=== PATIENT | male | born 1965 ===

== ENCOUNTER 2017-08-03 05:01 | Inpatient (IN) | payer MEDICAID, MEDICARE, OTHER ==
[2017-08-03 05:06] VITALS: BMI 34.7
[2017-08-03] MEDS ORDERED: Sodium Chloride 0.9% 1,000 ML IV STA (05:23)
--- NOTE | 2017-08-03 05:41 | ED PDOC ---
HPI: Abdomen Time Seen by Provider: 08/03/17 05:07 Chief Complaint (Nursing): Abdominal Pain Chief Complaint (Provider): Abdominal Pain History Per: Patient History/Exam Limitations: no limitations Onset/Duration Of Symptoms: Hrs (x4) Current Symptoms Are (Timing): Still Present Context: Food (Ate [place] food last night) Location Of Pain/Discomfort: Epigastric Quality Of Discomfort: "Pain" Associated Symptoms: Vomiting. denies: Diarrhea Additional Complaint(s): 52 year old male presents to ED with complaints of abdominal pain x4 hours and has a past medical history of cholelithiasis, depression, and HTN. Patient states he ate [place] food last night and should not have due to having hisotry of cholelithiasis. Patient states he woke up from the pain. (+) diaphoresis and vomiting x2 episodes (non-bloody, non-bilious), (-) diarrhea. Confirms taking ibuprofen, but states that he vomited it up. PCP: ARASH Past Medical History Reviewed: Historical Data, Nursing Documentation, Vital Signs Vital Signs: Last Vital Signs Temp 99.5 F 08/04/17 00:32 Pulse 83 08/04/17 00:32 Resp 18 08/04/17 00:32 BP 127/75 08/04/17 00:32 Pulse Ox 96 08/04/17 00:32 - Medical History PMH: Depression, HTN Denies: No Chronic Diseases Other PMH: Cholelithiasis - Surgical History Surgical History: No Surg Hx - Family History Family History: States: Unknown Family Hx - Social History Current smoker - smoking cessation education provided: Yes (3-4 cigarettes a day ) Ex-Smoker (has not smoked in the last 12 months): No Alcohol: None Drugs: Denies - Immunization History Hx Tetanus Toxoid Vaccination: No Hx Influenza Vaccination: No Hx Pneumococcal Vaccination: No - Home Medications Home Medications: Ambulatory Orders Medication Instructions Recorded Valsartan [Diovan] 320 mg PO DAILY 02/01/17 Ziprasidone HCl 160 mg PO HS 02/01/17 Zolpidem [Ambien] 10 mg PO HS 02/01/17 Citalopram Hydrobromide [Celexa] 20 mg PO DAILY 08/03/17 Ziprasidone HCl [Geodon] 20 mg PO DAILY 08/03/17 amLODIPine [Norvasc] 10 mg PO DAILY 08/03/17 hydroCHLOROthiazide [Hydrodiuril] 25 mg PO DAILY 08/03/17 - Allergies Allergies/Adverse Reactions: Allergies Allergy/AdvReac Type Severity Reaction Status Date / Time No Known Allergies Allergy Verified 02/01/17 13:00 Review of Systems ROS Statement: Except As Marked, All Systems Reviewed And Found Negative Constitutional: Positive for: Sweats Gastrointestinal: Positive for: Vomiting, Abdominal Pain. Negative for: Diarrhea Physical Exam - Reviewed Nursing Documentation Reviewed: Yes Vital Signs Reviewed: Yes - Physical Exam Appears: Positive for: Non-toxic, Uncomfortable (mildly uncomfortable) Skin: Positive for: Normal Color, Warm, Diaphoresis Eye Exam: Positive for: Normal appearance ENT: Positive for: Normal ENT Inspection Neck: Positive for: Normal Cardiovascular/Chest: Positive for: Regular Rate, Rhythm. Negative for: Murmur Respiratory: Positive for: Normal Breath Sounds. Negative for: Respiratory Distress Gastrointestinal/Abdominal: Positive for: Soft, Tenderness (epigastric tenderness) Back: Positive for: Normal Inspection Extremity: Positive for: Normal ROM. Negative for: Deformity Neurologic/Psych: Positive for: Alert, Oriented. Negative for: Motor/Sensory Deficits - Laboratory Results Result Diagrams: 08/03/17 05:47 08/03/17 05:47 - ECG ECG Rhythm: Positive for: Sinus Rhythm Rate: 73 O2 Sat by Pulse Oximetry: 98 (RA) Pulse Ox Interpretation: Normal Medical Decision Making Medical Decision Makin Initial impression: gastroenteritis r/o cholecystitis Initial plan: * Labs * Lipase * Morphine 4mg IV * NS IV * Pepcid 20mg IVP * Zofran 4mg IV * Urine C&S * UA * US GALLBLADDER AND COMMON DUCT * Re-eval 0700 Patient has a white count of 20. Patient will be signed out to Marti Almonte MD pending US. Scribe Attestation: Documented by Harini Salomon acting as a scribe for Rhianna Keating MD. Scribe Attestation: All medical record entries made by the Scribe were at my direction and personally dictated by me. I have reviewed the chart and agree that the record accurately reflects my personal performance of the history, physical exam, medical decision making, and the department course for this patient. I have also personally directed, reviewed, and agree with the discharge instructions and disposition. Disposition - Clinical Impression Clinical Impression: Abdominal pain - Patient ED Disposition Is Patient to be Admitted: Transfer of Care - Disposition Disposition: Transfer of Care Disposition Time: 07:00 Condition: STABLE Patient Signed Over To: Marti Almonte Handoff Comments: Pending US
[2017-08-03 05:54] LABS: BASO # 0.1 K/uL (0.0-0.2); BASO % 0.5 % (0.0-2.0); EOS # 0.3 K/uL (0.0-0.7); EOS % 1.5 % (0.0-4.0); HEMATOCRIT 41.4 % (35.0-51.0); LYMPH # 3.3 K/uL (1.0-4.3); LYMPH % 15.1 % (20.0-40.0); MEAN CELL VOLUME 90.2 fl (80.0-94.0); MEAN CORPUSCULAR HEMOGLOBIN 29.6 pg (27.0-31.0); MEAN CORPUSCULAR HGB CONC 32.8 g/dL (33.0-37.0); MEAN PLATELET VOLUME 9.2 fl (7.2-11.7); MONO # 1.8 K/uL (0.0-0.8); MONO % 8.4 % (0.0-10.0); NEUT # 16.1 K/uL (1.8-7.0); NEUT % 74.5 % (50.0-75.0); RED CELL DISTRIBUTION WIDTH 13.5 % (11.5-14.5); WHITE BLOOD COUNT 21.6 K/uL (4.8-10.8)
[2017-08-03 06:04] LABS: ALB/GLOB RATIO 1.1 (1.0-2.1); ALKALINE PHOSPHATASE 71 U/L (38-126); ALT/SGPT 22 U/L (21-72); AST/SGOT 25 U/L (17-59); BILIRUBIN,TOTAL 0.3 mg/dl (0.2-1.3); BLOOD UREA NITROGEN 19 mg/dl (9-20); CALCIUM 9.2 mg/dL (8.4-10.2); CARBON DIOXIDE 24 mmol/L (22-30); CHLORIDE 107 mmol/L (98-107); GFR AFRICAN-AMERICAN > 60; GLUCOSE,RANDOM 169 mg/dL (75-110); LIPASE 142 U/L (23-300); POTASSIUM 3.5 MMOL/L (3.6-5.0); SODIUM 142 mmol/l (132-148); TOTAL PROTEIN 7.9 G/DL (6.3-8.2)
--- NOTE | 2017-08-03 07:10 | ED PDOC ---
- Laboratory Results Result Diagrams: 08/08/17 06:00 08/07/17 04:15 - ECG O2 Sat by Pulse Oximetry: 98 (RA) Pulse Ox Interpretation: Normal Medical Decision Making Medical Decision Makin:00 Patient signed over to me, Marti Almotne MD, pending US. [employer] [facility] Division of Radiology [address] [place] [address] Tel. no. Patient Name: ALBERTO LEOS Pt. Address: [address] [place] [address] Rec #: [id number] [place] [address]: Zuri LUCAS, Rhianna Euceda Pt Order Location: [facility] : 1965 Male Age: 52 Order #: [id number] Reason for exam: abdominal pain rule out cholecystitis Ultrasound GALLBLADDER COMMON DUCT Exam Date: 08/03/17 This imaging exam was performed at [facility] EXAM: US Abdomen Limited, Right Upper Quadrant CLINICAL HISTORY: 52 years old, male; Pain; Abdominal pain; Acute; Additional info: Abdominal pain rule out cholecystitis TECHNIQUE: Real-time ultrasound of the right upper quadrant with image documentation. COMPARISON: No relevant prior studies available. FINDINGS: Artifacts: Limited due to bowel gas shadowing. Limited due to shadowing from the ribs. Liver: The liver measures 19 cm. There is hepatic pedal flow in the portal vein. Gallbladder: There are gallstones with 5 mm gallbladder wall thickening.There was no right upper quadrant tenderness during the sonographic examination. Correlation with patient's pain medication status is recommended. Common bile duct: The common bile duct measures 7 mm which is dilated for patient's age. No stones. Pancreas: The pancreas is not well-seen. Echogenic pancreas. Right kidney: The visualized portions of right kidney demonstrate no hydronephrosis. IMPRESSION: 1. There are gallstones with 5 mm gallbladder wall thickening.There was no right upper quadrant tenderness during the sonographic examination. Correlation with patient's pain medication status is recommended. 2. The common bile duct measures 7 mm which is dilated for patient's age. Dictated By: ANGEL BLANTON Dictated Date/Time: 08/03/17 0800 Signed By: ANGEL BLANTON MD Date Signed: 799 Transcribed By: DEBBIE Transcribe Date/Time : 08/03/17799 SEA/CE 08:[address] Leiva, General mobile security specialist. Will start pt on antibiotics. Will be on consult. 08:21 vice president of development notified. Scribe Attestation: Documented by Kellen Colin, acting as a scribe for Marti Almonte MD. Provider Scribe Attestation: All medical record entries made by the Scribe were at my direction and personally dictated by me. I have reviewed the chart and agree that the record accurately reflects my personal performance of the history, physical exam, medical decision making, and the department course for this patient. I have also personally directed, reviewed, and agree with the discharge instructions and disposition. Disposition - Clinical Impression Clinical Impression: Acute cholecystitis - POA Present On Arrival: None - Disposition Disposition: Admitted as In-Patient Disposition Time: 08:29 Condition: STABLE
--- NOTE | 2017-08-03 08:00 | US ---
EXAM: US Abdomen Limited, Right Upper Quadrant CLINICAL HISTORY: 52 years old, male; Pain; Abdominal pain; Acute; Additional info: Abdominal pain rule out cholecystitis TECHNIQUE: Real-time ultrasound of the right upper quadrant with image documentation. COMPARISON: No relevant prior studies available. FINDINGS: Artifacts: Limited due to bowel gas shadowing. Limited due to shadowing from the ribs. Liver: The liver measures 19 cm. There is hepatic pedal flow in the portal vein. Gallbladder: There are gallstones with 5 mm gallbladder wall thickening.There was no right upper quadrant tenderness during the sonographic examination. Correlation with patient's pain medication status is recommended. Common bile duct: The common bile duct measures 7 mm which is dilated for patient's age. No stones. Pancreas: The pancreas is not well-seen. Echogenic pancreas. Right kidney: The visualized portions of right kidney demonstrate no hydronephrosis. IMPRESSION: 1. There are gallstones with 5 mm gallbladder wall thickening.There was no right upper quadrant tenderness during the sonographic examination. Correlation with patient's pain medication status is recommended. 2. The common bile duct measures 7 mm which is dilated for patient's age.
[2017-08-03] MEDS ORDERED: Piperacillin/Tazobact 3.375 GM in Sodium Chloride 0.9% 100 ML IVPB STA (08:20)
[2017-08-03] MEDS ORDERED: Piperacillin/Tazobact 3.375 gm Inj IVPB ONE (08:27)
[2017-08-03 08:50] LABS: VENOUS BLOOD GAS BASE EXCESS 0.8 mmol/L (0.0-2.0); VENOUS BLOOD GAS PCO2 46 mmHg (40-60); VENOUS BLOOD PH 7.37 (7.32-7.43)
--- NOTE | 2017-08-03 09:13 | CP.PCM.CON ---
<Fortunato Bar - Last Filed: 08/03/17 09:14> History of Present Illness - History of Present Illness History of Present Illness: General Surgery- Dr. Leiva 52M PMHx diabetes, HTN, cholelithiasis presented to [facility] ED w/ with sharp epigastric abdominal pain that started at 2am with minimal relief since arriving to the ED. Pt had multiple episodes of NBNB vomiting and nausea after having Afghan food right before bed. Denies Diarrhea, recent sick contacts, Fevers, chills, SOB. Pt is a chronic smoker increased non-productive cough. PMHx: Mental illness, HTN, Diabetes, choleltithiasis. PSH: none ALL: none SocialHx: chronic smoker at least 1ppd for many years. Review of Systems - Review of Systems All systems: reviewed and no additional remarkable complaints except - Constitutional Constitutional: As Per HPI Past Patient History - Infectious Disease Hx of Infectious Diseases: None - Past Social History Alcohol: None Drugs: Denies - CARDIAC Hx Hypertension: Yes - ENDOCRINE/METABOLIC Hx Diabetes Mellitus Type 2: Yes - PSYCHIATRIC Hx Depression: Yes - SURGICAL HISTORY Hx Surgeries: No - ANESTHESIA Hx Anesthesia: No Meds Allergies/Adverse Reactions: Allergies Allergy/AdvReac Type Severity Reaction Status Date / Time No Known Allergies Allergy Verified 02/01/17 13:00 - Medications Medications: Current Medications Sodium Chloride (Sodium Chloride 0.9%) 1,000 mls @ 150 mls/hr IV .Q6H40M STA Stop: 08/03/17 12:02 Last Admin: 08/03/17 05:44 Dose: 150 mls/hr Piperacillin Sod/Tazobactam (Sod 3.375 gm/ Sodium Chloride) 100 mls @ 100 mls/ hr IVPB STAT STA Stop: 08/03/17 09:19 Last Admin: 08/03/17 08:30 Dose: 100 mls/hr Physical Exam - Constitutional Appears: Non-toxic, No Acute Distress - Head Exam Head Exam: ATRAUMATIC - Eye Exam Eye Exam: EOMI. absent: Scleral icterus - ENT Exam ENT Exam: Mucous Membranes Moist - Respiratory Exam Respiratory Exam: Wheezes, NORMAL BREATHING PATTERN. absent: Accessory Muscle Use, Respiratory Distress - Cardiovascular Exam Cardiovascular Exam: +S1, +S2 - GI/Abdominal Exam GI & Abdominal Exam: Normal Bowel Sounds, Soft, Tenderness. absent: Firm, Guarding, Hernia Additional comments: tender to palpation in mid-epigastric, and deep palpation RUQ - Extremities Exam Extremities exam: Negative for: calf tenderness - Back Exam Back exam: absent: CVA tenderness (L), CVA tenderness (R) - Neurological Exam Neurological exam: Alert, Oriented x3 - Skin Skin Exam: Normal Color Results - Vital Signs Recent Vital Signs: Last Vital Signs Temp 97.9 F 08/03/17 08:02 Pulse 68 08/03/17 08:02 Resp 16 08/03/17 08:02 BP 169/103 H 08/03/17 08:02 Pulse Ox 98 08/03/17 08:24 - Labs Result Diagrams: 08/03/17 05:47 08/03/17 05:47 Labs: Laboratory Results - last 24 hr 08/03/17 08/03/17 08/03/17 05:47 05:47 08:45 WBC 21.6 H RBC 4.60 Hgb 13.6 Hct 41.4 MCV 90.2 MCH 29.6 MCHC 32.8 L RDW 13.5 Plt Count 317 MPV 9.2 Neut % (Auto) 74.5 Lymph % (Auto) 15.1 L [place] % (Auto) 8.4 Eos % (Auto) 1.5 Baso % (Auto) 0.5 Neut # 16.1 H Lymph # 3.3 Lehigh # 1.8 H Eos # 0.3 Baso # 0.1 pO2 48 VBG pH 7.37 VBG pCO2 46 VBG HCO3 25.1 VBG Total CO2 28.0 VBG O2 Sat (Calc) 89.4 H VBG Base Excess 0.8 VBG Potassium 3.9 Glucose 156 H Lactate 2.4 H FiO2 21.0 Crit Value Called To Eliza escobedo Crit Value Called By Ms Crit Value Read Back Y Blood Gas Notified Time 850 Sodium 142 139.0 Potassium 3.5 L Chloride 107 105.0 Carbon Dioxide 24 Anion Gap 15 BUN 19 Creatinine 1.4 Est GFR ( Amer) > 60 Est GFR (Non-Af Amer) 53 Random Glucose 169 H Calcium 9.2 Total Bilirubin 0.3 AST 25 ALT 22 Alkaline Phosphatase 71 Total Protein 7.9 Albumin 4.1 Globulin 3.8 Albumin/Globulin Ratio 1.1 Lipase 142 Venous Blood Potassium 3.9 Assessment & Plan - Assessment and Plan (Free Text) Assessment: 52M Mid-Epigastric pain w/ cholelithiasis Plan: - NPO - IVF/Abx - await results of UA and final read of CXR - pain control - GI/DVT ppx - HIDA- rule out cholecystitits - further recs per Dr. Cali Bar PGY1 <Richard Leiva - Last Filed: 08/05/17 11:51> Meds - Medications Medications: Current Medications Acetaminophen (Tylenol 325mg Tab) 650 mg PO Q6 PRN PRN Reason: Fever >100.4 F Amlodipine Besylate (Norvasc) 10 mg PO DAILY [facility] Last Admin: 08/04/17 10:07 Dose: 10 mg Citalopram Hydrobromide (Celexa) 20 mg PO DAILY [facility] Last Admin: 08/05/17 08:44 Dose: 20 mg Famotidine (Pepcid) 20 mg IVP Q12 [facility] Last Admin: 08/05/17 08:53 Dose: 20 mg Hydrochlorothiazide (Hydrodiuril) 25 mg PO DAILY [facility] Last Admin: 08/04/17 10:07 Dose: 25 mg Piperacillin Sod/Tazobactam (Sod 3.375 gm/ Sodium Chloride) 100 mls @ 100 mls/ hr IVPB Q12 [facility] Last Admin: 08/05/17 08:44 Dose: 100 mls/hr Lactated Ringer's (Lactated Ringer's) 1,000 mls @ 1,000 mls/hr IV .Q1H PRN PRN Reason: Hypotension Potassium Chloride/Dextrose/Sod Cl (Potassium Chl 20 Meq In D5-1/2ns) 1,000 mls @ 80 mls/hr IV .[id number] [facility] Stop: 08/06/17 07:53 Last Admin: 08/05/17 08:30 Dose: 80 mls/hr Metoclopramide HCl (Reglan) 10 mg IVP Q6 PRN PRN Reason: Nausea/Vomiting Oxycodone/Acetaminophen (Percocet 5/325 Mg Tab) 1 tab PO Q6 PRN PRN Reason: Pain, moderate (4-7) Stop: 08/07/17 20:04 Last Admin: 08/05/17 10:03 Dose: 1 tab Oxycodone/Acetaminophen (Percocet 5/325 Mg Tab) 2 tab PO Q6 PRN PRN Reason: Pain, severe (8-10) Stop: 08/08/17 07:37 Valsartan (Diovan) 320 mg PO DAILY [facility] Last Admin: 08/04/17 10:17 Dose: 320 mg Ziprasidone (Geodon Cap) 20 mg PO DAILY [facility] Last Admin: 08/05/17 08:44 Dose: 20 mg Ziprasidone (Geodon) 160 mg PO HS [facility] Last Admin: 08/04/17 23:51 Dose: 160 mg Results - Vital Signs Recent Vital Signs: Last Vital Signs Temp 98.8 F 08/05/17 08:00 Pulse 74 08/05/17 09:00 Resp 20 08/05/17 08:00 BP 123/78 08/05/17 08:00 Pulse Ox 90 L 08/05/17 08:00 - Labs Result Diagrams: 08/05/17 05:50 08/05/17 05:50 Labs: Laboratory Results - last 24 hr 08/04/17 08/04/17 08/04/17 11:01 15:54 19:57 WBC RBC Hgb Hct MCV MCH MCHC RDW Plt Count MPV Neut % (Auto) Lymph % (Auto) [place] % (Auto) Eos % (Auto) Baso % (Auto) Neut # Lymph # [place] # Eos # Baso # Sodium Potassium Chloride Carbon Dioxide Anion Gap BUN Creatinine Est GFR ( Amer) Est GFR (Non-Af Amer) POC Glucose (mg/dL) 128 H 97 138 H Random Glucose Calcium Total Bilirubin AST ALT Alkaline Phosphatase Total Protein Albumin Globulin Albumin/Globulin Ratio 08/05/17 08/05/17 05:50 05:50 WBC 20.0 H RBC 4.02 L Hgb 12.1 Hct 36.6 MCV 91.0 MCH 30.1 MCHC 33.1 RDW 13.2 Plt Count 230 MPV 8.9 Neut % (Auto) 73.3 Lymph % (Auto) 14.5 L [place] % (Auto) 11.0 H Eos % (Auto) 0.5 Baso % (Auto) 0.7 Neut # 14.7 H Lymph # 2.9 [place] # 2.2 H Eos # 0.1 Baso # 0.1 Sodium 139 Potassium 3.7 Chloride 102 Carbon Dioxide 25 Anion Gap 16 BUN 14 Creatinine 1.1 Est GFR ( Amer) > 60 Est GFR (Non-Af Amer) > 60 POC Glucose (mg/dL) Random Glucose 86 Calcium 8.3 L Total Bilirubin 0.8 AST 54 ALT 55 Alkaline Phosphatase 60 Total Protein 6.7 Albumin 3.3 L Globulin 3.4 Albumin/Globulin Ratio 1.0 Attending/Attestation - Attestation I have personally seen and examined this patient.: Yes I have fully participated in the care of the patient.: Yes I have reviewed all pertinent clinical information: Yes Notes (Text): 08/05/17 11:48 Pt was seen and examined at bedside Agree with above note and assessment Pt with epigastric pain and tenderness RUQ tenderness Ass: Possible cholecystitis with cholelithiasis Less likely Gastroenteritis f/U HIDA scan C/w IV antibitics GI consult Plan d.w pt in detail Risk and benefit explained in detail.
[2017-08-03] MEDS ORDERED: Lactated Ringer's 1,000 ML IV SCH (09:30)
--- NOTE | 2017-08-03 10:08 | RAD ---
HISTORY: COMPARISON: 01/09/2013. TECHNIQUE: Chest PA and lateral FINDINGS: LINES AND TUBES: None. LUNG AND PLEURA: The lungs are hyperinflated and there is peribronchial thickening with chronic changes in both lungs. No focal consolidation. HEART AND MEDIASTINUM: The heart is not enlarged. The hilar and mediastinal contours are within normal limits. SKELETAL STRUCTURES: The bony structures are within normal limits for the patient's age. VISUALIZED UPPER ABDOMEN: Normal. OTHER FINDINGS: None. IMPRESSION: No active pulmonary disease. COPD.
[2017-08-03 12:09] LABS: RBC URINE 10 /hpf (0-3); URINE BILIRUBIN NEGATIVE (NEGATIVE); URINE BLOOD NEGATIVE (NEGATIVE); URINE COLOR YELLOW (YELLOW); URINE GLUCOSE (UA) NEG (Normal); URINE KETONE NEGATIVE (NEGATIVE); URINE LEUKOCYTE ESTERASE NEG Leu/uL (Negative); URINE PROTEIN 100 mg/dL (NEGATIVE); URINE UROBILINOGEN 0.2-1.0 mg/dL (0.2-1.0); WBC URINE 4 /hpf (0-5)
[2017-08-03] MEDS: Lactated Ringer's 1,000 ML IV SCH (16:18)
--- NOTE | 2017-08-03 17:24 | CARD ---
APPROVED REPORT EKG Measurement Heart [id number] <Conclusion> Sinus rhythm with marked sinus arrhythmia Otherwise normal ECG
[2017-08-03] MEDS: Piperacillin/Tazobact 3.375 GM in Sodium Chloride 0.9% 100 ML IVPB SCH (21:31)
[2017-08-04] MEDS: Lactated Ringer's 1,000 ML IV SCH (05:37)
[2017-08-04 06:58] LABS: HEMATOCRIT 39.3 % (35.0-51.0); MEAN CELL VOLUME 89.5 fl (80.0-94.0); MEAN CORPUSCULAR HEMOGLOBIN 30.1 pg (27.0-31.0); MEAN CORPUSCULAR HGB CONC 33.6 g/dL (33.0-37.0); RED CELL DISTRIBUTION WIDTH 13.4 % (11.5-14.5); WHITE BLOOD COUNT 22.2 K/uL (4.8-10.8)
[2017-08-04 07:08] LABS: BLOOD UREA NITROGEN 12 mg/dl (9-20); CARBON DIOXIDE 24 mmol/L (22-30); CHLORIDE 101 mmol/L (98-107); GFR AFRICAN-AMERICAN > 60; GLUCOSE,RANDOM 121 mg/dL (75-110); POTASSIUM 3.2 MMOL/L (3.6-5.0); SODIUM 140 mmol/l (132-148)
--- NOTE | 2017-08-04 08:02 | CP.PCM.PN ---
Addendum entered and electronically signed by Laura Friedman DO 08/04/17 11: 25: HIDA scan +. Patient for OR this afternoon. maintain NPO status. AKWhite PGY3 Original Note: <Fortunato Bar - Last Filed: 08/04/17 08:00> Subjective - Date & Time of Evaluation Date of Evaluation: 08/04/17 Time of Evaluation: 07:00 - Subjective Subjective: General Surgery- Dr. Leiva Pt S&E at bedside this AM. No acute events overnight. Pt is on CLD and tolerating will. continued epigastric and RUQ pain. Denies N/V/D CP/SOB Objective - Vital Signs/Intake and Output Vital Signs (last 24 hours): Temp Pulse Resp BP Pulse Ox 98.4 F 86 18 145/94 H 95 08/04/17 07:36 08/04/17 07:36 08/04/17 07:36 08/04/17 07:36 08/04/17 07:36 - Medications Medications: Current Medications Amlodipine Besylate (Norvasc) 10 mg PO DAILY [facility] Last Admin: 08/03/17 14:38 Dose: 10 mg Citalopram Hydrobromide (Celexa) 20 mg PO DAILY [facility] Last Admin: 08/03/17 15:17 Dose: 20 mg Famotidine (Pepcid) 20 mg IVP Q12 [facility] Last Admin: 08/03/17 21:31 Dose: 20 mg Hydrochlorothiazide (Hydrodiuril) 25 mg PO DAILY [facility] Last Admin: 08/03/17 14:38 Dose: 25 mg Piperacillin Sod/Tazobactam (Sod 3.375 gm/ Sodium Chloride) 100 mls @ 100 mls/ hr IVPB Q12 [facility] Last Admin: 08/03/17 21:31 Dose: 100 mls/hr Lactated Ringer's (Lactated Ringer's) 1,000 mls @ 75 mls/hr IV .[id number] [facility] Last Admin: 08/04/17 05:37 Dose: 75 mls/hr Valsartan (Diovan) 320 mg PO DAILY [facility] Last Admin: 08/03/17 15:17 Dose: 320 mg Ziprasidone (Geodon Cap) 20 mg PO DAILY [facility] Last Admin: 08/03/17 15:16 Dose: 20 mg Ziprasidone (Geodon) 160 mg PO HS [facility] Last Admin: 08/03/17 21:39 Dose: 160 mg - Labs Labs: 08/04/17 06:35 08/04/17 06:35 - Constitutional Appears: Non-toxic, No Acute Distress - Head Exam Head Exam: ATRAUMATIC - Eye Exam Eye Exam: EOMI. absent: Scleral icterus - Respiratory Exam Respiratory Exam: NORMAL BREATHING PATTERN. absent: Accessory Muscle Use, Respiratory Distress - Cardiovascular Exam Cardiovascular Exam: +S1, +S2 - GI/Abdominal Exam GI & Abdominal Exam: Soft, Tenderness. absent: Distended, Firm, Guarding, Rigid Additional comments: TTP mid-epigastrum and RUQ -tate - Extremities Exam Extremities Exam: Normal Inspection. absent: Calf Tenderness - Neurological Exam Neurological Exam: Alert, Awake, Oriented x3 - Psychiatric Exam Psychiatric exam: Normal Affect, Normal Mood - Skin Skin Exam: Dry, Normal Color, Warm Assessment and Plan - Assessment and Plan (Free Text) Assessment: 52M Cholelithiasis vs Acute cholecystitis Plan: - NPO - IVF/Abx - GI/DVT ppx - f/u GI recs - HIDA today; if HIDA positive plan for OR Thursday - further recs per Dr. Cali Bar PGY1 <Richard Leiva - Last Filed: 08/05/17 12:02> Objective - Vital Signs/Intake and Output Vital Signs (last 24 hours): Temp Pulse Resp BP Pulse Ox 98.8 F 74 20 123/78 90 L 08/05/17 08:00 08/05/17 09:00 08/05/17 08:00 08/05/17 08:00 08/05/17 08:00 Intake and Output: 08/05/17 08/05/17 06:59 18:59 Intake Total 3700 Output Total 485 Balance 3215 - Medications Medications: Current Medications Acetaminophen (Tylenol 325mg Tab) 650 mg PO Q6 PRN PRN Reason: Fever >100.4 F Amlodipine Besylate (Norvasc) 10 mg PO DAILY [facility] Last Admin: 08/04/17 10:07 Dose: 10 mg Citalopram Hydrobromide (Celexa) 20 mg PO DAILY [facility] Last Admin: 08/05/17 08:44 Dose: 20 mg Famotidine (Pepcid) 20 mg IVP Q12 [facility] Last Admin: 08/05/17 08:53 Dose: 20 mg Hydrochlorothiazide (Hydrodiuril) 25 mg PO DAILY [facility] Last Admin: 08/04/17 10:07 Dose: 25 mg Piperacillin Sod/Tazobactam (Sod 3.375 gm/ Sodium Chloride) 100 mls @ 100 mls/ hr IVPB Q12 [facility] Last Admin: 08/05/17 08:44 Dose: 100 mls/hr Lactated Ringer's (Lactated Ringer's) 1,000 mls @ 1,000 mls/hr IV .Q1H PRN PRN Reason: Hypotension Potassium Chloride/Dextrose/Sod Cl (Potassium Chl 20 Meq In D5-1/2ns) 1,000 mls @ 80 mls/hr IV .[id number] [facility] Stop: 08/06/17 07:53 Last Admin: 08/05/17 08:30 Dose: 80 mls/hr Metoclopramide HCl (Reglan) 10 mg IVP Q6 PRN PRN Reason: Nausea/Vomiting Oxycodone/Acetaminophen (Percocet 5/325 Mg Tab) 1 tab PO Q6 PRN PRN Reason: Pain, moderate (4-7) Stop: 08/07/17 20:04 Last Admin: 08/05/17 10:03 Dose: 1 tab Oxycodone/Acetaminophen (Percocet 5/325 Mg Tab) 2 tab PO Q6 PRN PRN Reason: Pain, severe (8-10) Stop: 08/08/17 07:37 Valsartan (Diovan) 320 mg PO DAILY [facility] Last Admin: 08/04/17 10:17 Dose: 320 mg Ziprasidone (Geodon Cap) 20 mg PO DAILY [facility] Last Admin: 08/05/17 08:44 Dose: 20 mg Ziprasidone (Geodon) 160 mg PO HS [facility] Last Admin: 08/04/17 23:51 Dose: 160 mg - Labs Labs: 08/05/17 05:50 08/05/17 05:50 PT 13.6 Seconds (9.8-13.1) H 08/04/17 11:00 INR 1.3 (0.9-1.2) H 08/04/17 11:00 APTT 32.9 Seconds (25.6-37.1) 08/04/17 11:00 Attending/Attestation - Attestation I have personally seen and examined this patient.: Yes I have fully participated in the care of the patient.: Yes I have reviewed all pertinent clinical information, including history, physical exam and plan: Yes Notes (Text): 08/05/17 12:01 Pt was seen and examined at bedside Agree with above note and assessment Pt with RUQ pain HIDA is positive OR for Lap Cholecystectomy possible Open Consent NPO, IVF C/W IV antibiotics Plan d.w pt in detail Risk and benefit explained in detail.
[2017-08-04 08:08] LABS: ALKALINE PHOSPHATASE 70 U/L (38-126); ALT/SGPT 36 U/L (21-72); AST/SGOT 31 U/L (17-59); BILIRUBIN,TOTAL 0.9 mg/dl (0.2-1.3); TOTAL PROTEIN 7.7 G/DL (6.3-8.2)
[2017-08-04] MEDS ORDERED: Potassium Chloride 20 mEq ER Tab PO ONE (09:07)
[2017-08-04] MEDS: Potassium Chloride 20 MEQ in Sodium Chloride 0.45% 1,000 ML IV SCH ×2 (09:15→11:00)
[2017-08-04] MEDS: Piperacillin/Tazobact 3.375 GM in Sodium Chloride 0.9% 100 ML IVPB SCH ×2 (10:08→23:03)
--- NOTE | 2017-08-04 10:55 | CP.PCM.PN ---
<Kamron Man - Last Filed: 08/04/17 11:03> Subjective - Date & Time of Evaluation Date of Evaluation: 08/04/17 Time of Evaluation: 10:53 - Subjective Subjective: pt seen and examined at bedside this morning. No acute events overnight. Afebrile, currently NPO recieving IV hydration and Abx therapy. No new complaints. RUQ pain controlled with medications. Denies fever/chills, headaches , changes in vision, CP/SOB, N/V/D/C. Objective - Vital Signs/Intake and Output Vital Signs (last 24 hours): Temp Pulse Resp BP Pulse Ox 98.4 F 86 18 145/94 H 95 08/04/17 07:36 08/04/17 07:36 08/04/17 07:36 08/04/17 10:07 08/04/17 07:36 - Medications Medications: Current Medications Amlodipine Besylate (Norvasc) 10 mg PO DAILY [facility] Last Admin: 08/04/17 10:07 Dose: 10 mg Citalopram Hydrobromide (Celexa) 20 mg PO DAILY [facility] Last Admin: 08/04/17 10:07 Dose: 20 mg Famotidine (Pepcid) 20 mg IVP Q12 [facility] Last Admin: 08/04/17 10:17 Dose: 20 mg Hydrochlorothiazide (Hydrodiuril) 25 mg PO DAILY [facility] Last Admin: 08/04/17 10:07 Dose: 25 mg Piperacillin Sod/Tazobactam (Sod 3.375 gm/ Sodium Chloride) 100 mls @ 100 mls/ hr IVPB Q12 [facility] Last Admin: 08/04/17 10:08 Dose: 100 mls/hr Potassium Chloride 20 meq/ (Sodium Chloride) 1,010 mls @ 80 mls/hr IV .[id number] [facility] Stop: 08/05/17 09:08 Valsartan (Diovan) 320 mg PO DAILY [facility] Last Admin: 08/04/17 10:17 Dose: 320 mg Ziprasidone (Geodon Cap) 20 mg PO DAILY [facility] Last Admin: 08/04/17 10:07 Dose: 20 mg Ziprasidone (Geodon) 160 mg PO HS [facility] Last Admin: 08/03/17 21:39 Dose: 160 mg - Labs Labs: 08/04/17 06:35 08/04/17 06:35 - Constitutional Appears: Non-toxic, No Acute Distress - Eye Exam Eye Exam: EOMI Pupil Exam: PERRL - ENT Exam ENT Exam: Mucous Membranes Moist - Neck Exam Neck Exam: Full ROM - Respiratory Exam Respiratory Exam: Clear to Ausculation Bilateral, NORMAL BREATHING PATTERN. absent: Rales, Rhonchi, Wheezes - Cardiovascular Exam Cardiovascular Exam: REGULAR RHYTHM, RRR, +S1, +S2. absent: JVD, Rubs - GI/Abdominal Exam GI & Abdominal Exam: Soft, Tenderness (RUQ Tenderness, +tate), Hyperactive Bowel Sounds. absent: Rigid - Extremities Exam Extremities Exam: Normal Inspection. absent: Calf Tenderness, Pedal Edema - Neurological Exam Neurological Exam: Alert, Awake, CN II-XII Intact, Oriented x3 - Psychiatric Exam Psychiatric exam: Normal Affect, Normal Mood - Skin Skin Exam: Dry, Intact, Normal Color, Warm Assessment and Plan (1) Acute cholecystitis Assessment & Plan: currently being followed by gen/surg for potential surgical intervention pending HIDA scan results GB U/S: CBD dilation, wall thickening, gallstones -NPO DIET -IV Fluid hydration -IV ABx therapy as ordered -F/U GI -HIDA Scan today Status: Acute (2) Essential (primary) hypertension Assessment & Plan: c/w home medications Status: Acute (3) Prophylactic measure Assessment & Plan: pepcid 20mg QD scds prn, ambulation Status: Acute <Nicholson,[place] - Last Filed: 08/07/17 16:23> Objective - Vital Signs/Intake and Output Vital Signs (last 24 hours): Temp Pulse Resp BP Pulse Ox 98.0 F 79 19 133/76 97 08/07/17 16:13 08/07/17 16:13 08/07/17 16:13 08/07/17 16:13 08/07/17 16:13 Intake and Output: 08/07/17 08/07/17 06:59 18:59 Intake Total 500 Output Total 820 Balance -320 - Medications Medications: Current Medications Acetaminophen (Tylenol 325mg Tab) 650 mg PO Q6 PRN PRN Reason: Fever >100.4 F Amlodipine Besylate (Norvasc) 10 mg PO DAILY [facility] Last Admin: 08/07/17 09:11 Dose: 10 mg Citalopram Hydrobromide (Celexa) 20 mg PO DAILY [facility] Last Admin: 08/07/17 09:11 Dose: 20 mg Docusate Sodium (Colace) 100 mg PO DAILY PRN PRN Reason: constipation Famotidine (Pepcid) 20 mg PO BID [facility] Last Admin: 08/07/17 09:13 Dose: 20 mg Hydrochlorothiazide (Hydrodiuril) 25 mg PO DAILY [facility] Last Admin: 08/07/17 09:11 Dose: 25 mg Meropenem 1 gm/ Sodium (Chloride) 100 mls @ 100 mls/hr IVPB Q8 [facility] Lactulose (Enulose) 10 gm PO DAILY PRN PRN Reason: Constipation Metoclopramide HCl (Reglan) 10 mg IVP Q6 PRN PRN Reason: Nausea/Vomiting Oxycodone/Acetaminophen (Percocet 5/325 Mg Tab) 1 tab PO Q6 PRN PRN Reason: Pain, moderate (4-7) Stop: 08/07/17 20:04 Last Admin: 08/07/17 04:31 Dose: 1 tab Oxycodone/Acetaminophen (Percocet 5/325 Mg Tab) 2 tab PO Q6 PRN PRN Reason: Pain, severe (8-10) Stop: 08/08/17 07:37 Last Admin: 08/06/17 08:19 Dose: 2 tab Valsartan (Diovan) 320 mg PO DAILY [facility] Last Admin: 08/07/17 09:11 Dose: 320 mg Ziprasidone (Geodon Cap) 20 mg PO DAILY [facility] Last Admin: 08/07/17 09:11 Dose: 20 mg Ziprasidone (Geodon) 160 mg PO [facility] Last Admin: 08/06/17 21:21 Dose: 160 mg - Labs Labs: 08/07/17 04:15 08/07/17 04:15 PT 13.6 Seconds (9.8-13.1) H 08/04/17 11:00 INR 1.3 (0.9-1.2) H 08/04/17 11:00 APTT 32.9 Seconds (25.6-37.1) 08/04/17 11:00 Assessment and Plan - Assessment and Plan (Free Text) Assessment: Patient was personally seen and examined by me in rounds with residents. Available labs and diagnostic data reviewed. Case, Patient's condition and management plan Discussed with residents in rounds. Agree with resident's progress note. Plan: As ordered.
[2017-08-04 11:44] LABS: PARTIAL THROMBOPLASTIN TIME 32.9 Seconds (25.6-37.1)
--- NOTE | 2017-08-04 13:20 | CP.PCM.CON ---
<Mega Irby - Last Filed: 08/04/17 13:32> History of Present Illness - History of Present Illness History of Present Illness: PGY4 Initial GI Consult Marco Green is a 52M w/ htn, DM, HL who presented to the ER with complaints of epigastric and RUQ pain. Pt states that the pain awoke him at 2am. He states that the pain was sharp and radiating to the RUQ. It was 10 out of 10 and constant. He concurrently had non-bloody emesis x2 at home. He eventually came to the ER for further eval. Pt states that he has had similar RUQ pain in the past. He states that he was recently seen in the ER complaining of RUQ pain. At the time, he was diagnosed with biliary colic and discharged. Pt states that since then he has not had any further episode until yesterday. Pt denies any fever, chills or diaphoresis. Prior to bed, he ate at a [employer] restaurant. No other family members have similiar symptoms. Denies any recent abx use. He states that he has reg BM daily and brown. No other complaint. He has been by surgery and planned for lap clarita today at 4pm. PMHx: Mental illness, HTN, Diabetes, choleltithiasis. PSH: none ALL: none SocialHx: chronic smoker at least 1ppd for many years. Family hx: denies colon ca Endoscopy hx: denies ROS: 12-point ROS conducted, neg other than above Past Patient History - Infectious Disease Hx of Infectious Diseases: None - Past Medical History & Family History Past Medical History?: Yes - Past Social History Alcohol: None Drugs: Denies - CARDIAC Hx Hypertension: Yes - ENDOCRINE/METABOLIC Hx Endocrine Disorders: Yes - MUSCULOSKELETAL/RHEUMATOLOGICAL Hx Falls: No - PSYCHIATRIC Hx Depression: Yes - SURGICAL HISTORY Hx Surgeries: No - ANESTHESIA Hx Anesthesia: No Meds Allergies/Adverse Reactions: Allergies Allergy/AdvReac Type Severity Reaction Status Date / Time No Known Allergies Allergy Verified 02/01/17 13:00 - Medications Medications: Current Medications Amlodipine Besylate (Norvasc) 10 mg PO DAILY [facility] Last Admin: 08/04/17 10:07 Dose: 10 mg Citalopram Hydrobromide (Celexa) 20 mg PO DAILY [facility] Last Admin: 08/04/17 10:07 Dose: 20 mg Famotidine (Pepcid) 20 mg IVP Q12 [facility] Last Admin: 08/04/17 10:17 Dose: 20 mg Hydrochlorothiazide (Hydrodiuril) 25 mg PO DAILY [facility] Last Admin: 08/04/17 10:07 Dose: 25 mg Piperacillin Sod/Tazobactam (Sod 3.375 gm/ Sodium Chloride) 100 mls @ 100 mls/ hr IVPB Q12 [facility] Last Admin: 08/04/17 10:08 Dose: 100 mls/hr Potassium Chloride 20 meq/ (Sodium Chloride) 1,010 mls @ 80 mls/hr IV .[id number] [facility] Stop: 08/05/17 09:08 Last Admin: 08/04/17 09:15 Dose: Not Given Valsartan (Diovan) 320 mg PO DAILY [facility] Last Admin: 08/04/17 10:17 Dose: 320 mg Ziprasidone (Geodon Cap) 20 mg PO DAILY [facility] Last Admin: 08/04/17 10:07 Dose: 20 mg Ziprasidone (Geodon) 160 mg PO HS [facility] Last Admin: 08/03/17 21:39 Dose: 160 mg Physical Exam - Constitutional Appears: Well, No Acute Distress - Head Exam Head Exam: ATRAUMATIC, NORMOCEPHALIC - Eye Exam Eye Exam: Normal appearance - ENT Exam ENT Exam: Mucous Membranes Moist - Neck Exam Neck exam: Positive for: Normal Inspection - Respiratory Exam Respiratory Exam: Clear to Auscultation Bilateral, NORMAL BREATHING PATTERN. absent: Rales, Rhonchi, Wheezes - Cardiovascular Exam Cardiovascular Exam: REGULAR RHYTHM, +S1, +S2 - GI/Abdominal Exam GI & Abdominal Exam: Normal Bowel Sounds, Soft, Tenderness (RUQ) - Extremities Exam Extremities exam: Positive for: normal inspection - Neurological Exam Neurological exam: Alert, Oriented x3 - Skin Skin Exam: Dry, Intact, Normal Color Results - Vital Signs Recent Vital Signs: Last Vital Signs Temp 98.4 F 08/04/17 07:36 Pulse 86 08/04/17 07:36 Resp 18 08/04/17 07:36 BP 145/94 H 08/04/17 10:07 Pulse Ox 95 08/04/17 07:36 - Labs Result Diagrams: 08/04/17 06:35 08/04/17 06:35 Labs: Laboratory Results - last 24 hr 08/03/17 08/03/17 08/03/17 11:01 15:38 21:44 WBC RBC Hgb Hct MCV MCH MCHC RDW Plt Count PT INR APTT Sodium Potassium Chloride Carbon Dioxide Anion Gap BUN Creatinine Est GFR ( Amer) Est GFR (Non-Af Amer) POC Glucose (mg/dL) 149 H 159 H 92 Random Glucose Calcium Total Bilirubin Direct Bilirubin AST ALT Alkaline Phosphatase Total Protein Albumin Globulin Albumin/Globulin Ratio 08/04/17 08/04/17 08/04/17 05:56 06:35 06:35 WBC 22.2 H RBC 4.40 Hgb 13.2 Hct 39.3 MCV 89.5 MCH 30.1 MCHC 33.6 RDW 13.4 Plt Count 272 PT INR APTT Sodium 140 Potassium 3.2 L Chloride 101 Carbon Dioxide 24 Anion Gap 18 BUN 12 Creatinine 0.8 Est GFR ( Amer) > 60 Est GFR (Non-Af Amer) > 60 POC Glucose (mg/dL) 115 H Random Glucose 121 H Calcium 9.0 Total Bilirubin 0.9 Direct Bilirubin 0.5 H AST 31 ALT 36 Alkaline Phosphatase 70 Total Protein 7.7 Albumin 3.8 Globulin 3.9 Albumin/Globulin Ratio 1.0 08/04/17 11:00 WBC RBC Hgb Hct MCV MCH MCHC RDW Plt Count PT 13.6 H INR 1.3 H APTT 32.9 Sodium Potassium Chloride Carbon Dioxide Anion Gap BUN Creatinine Est GFR ( Amer) Est GFR (Non-Af Amer) POC Glucose (mg/dL) Random Glucose Calcium Total Bilirubin Direct Bilirubin AST ALT Alkaline Phosphatase Total Protein Albumin Globulin Albumin/Globulin Ratio Assessment & Plan - Assessment and Plan (Free Text) Assessment: Marco Green is a 52M w/ hx of HTN, Dm, and HL who presents with RUQ, etiology is likely cholecystitis based on physcial and U/S findings 1. Cholecystitis 2. RUQ abd pain 3. Leukocytosis Plan: -NPO -as per surgery, Lap clarita at 4pm today -continue abx as per surgury -No acute GI intervention at this time, LFTs WNL and CBD -recommend routine outpt screening colonoscopy -diet as per surgery -Will sign off, please reconsult if needed D/W Dr. Quarles <Robina LUCASY[facility] Centerhayde - Last Filed: 08/04/17 18:47> Meds - Medications Medications: Current Medications Amlodipine Besylate (Norvasc) 10 mg PO DAILY [facility] Last Admin: 08/04/17 10:07 Dose: 10 mg Citalopram Hydrobromide (Celexa) 20 mg PO DAILY [facility] Last Admin: 08/04/17 10:07 Dose: 20 mg Famotidine (Pepcid) 20 mg IVP Q12 [facility] Last Admin: 08/04/17 10:17 Dose: 20 mg Hydrochlorothiazide (Hydrodiuril) 25 mg PO DAILY [facility] Last Admin: 08/04/17 10:07 Dose: 25 mg Piperacillin Sod/Tazobactam (Sod 3.375 gm/ Sodium Chloride) 100 mls @ 100 mls/ hr IVPB Q12 [facility] Last Admin: 08/04/17 10:08 Dose: 100 mls/hr Potassium Chloride 20 meq/ (Sodium Chloride) 1,010 mls @ 80 mls/hr IV .[id number] [facility] Stop: 08/05/17 09:08 Last Admin: 08/04/17 11:00 Dose: 80 mls/hr Potassium Chloride (Potassium Cl 10meq/50ml Sterile Water) 50 mls @ 50 mls/hr IVPB Q1 [facility] Stop: 08/04/17 19:59 Valsartan (Diovan) 320 mg PO DAILY [facility] Last Admin: 08/04/17 10:17 Dose: 320 mg Ziprasidone (Geodon Cap) 20 mg PO DAILY [facility] Last Admin: 08/04/17 10:07 Dose: 20 mg Ziprasidone (Geodon) 160 mg PO [facility] Last Admin: 08/03/17 21:39 Dose: 160 mg Results - Vital Signs Recent Vital Signs: Last Vital Signs Temp 100.7 F H 08/04/17 16:33 Pulse 103 H 08/04/17 16:33 Resp 20 08/04/17 16:33 BP 127/81 08/04/17 16:33 Pulse Ox 97 08/04/17 16:33 - Labs Result Diagrams: 08/04/17 06:35 08/04/17 06:35 Labs: Laboratory Results - last 24 hr 08/03/17 08/04/17 08/04/17 21:44 05:56 06:35 WBC 22.2 H RBC 4.40 Hgb 13.2 Hct 39.3 MCV 89.5 MCH 30.1 MCHC 33.6 RDW 13.4 Plt Count 272 PT INR APTT Sodium Potassium Chloride Carbon Dioxide Anion Gap BUN Creatinine Est GFR ( Amer) Est GFR (Non-Af Amer) POC Glucose (mg/dL) 92 115 H Random Glucose Calcium Total Bilirubin Direct Bilirubin AST ALT Alkaline Phosphatase Total Protein Albumin Globulin Albumin/Globulin Ratio 08/04/17 08/04/17 08/04/17 06:35 11:00 11:01 WBC RBC Hgb Hct MCV MCH MCHC RDW Plt Count PT 13.6 H INR 1.3 H APTT 32.9 Sodium 140 Potassium 3.2 L Chloride 101 Carbon Dioxide 24 Anion Gap 18 BUN 12 Creatinine 0.8 Est GFR ( Amer) > 60 Est GFR (Non-Af Amer) > 60 POC Glucose (mg/dL) 128 H Random Glucose 121 H Calcium 9.0 Total Bilirubin 0.9 Direct Bilirubin 0.5 H AST 31 ALT 36 Alkaline Phosphatase 70 Total Protein 7.7 Albumin 3.8 Globulin 3.9 Albumin/Globulin Ratio 1.0 08/04/17 15:54 WBC RBC Hgb Hct MCV MCH MCHC RDW Plt Count PT INR APTT Sodium Potassium Chloride Carbon Dioxide Anion Gap BUN Creatinine Est GFR ( Amer) Est GFR (Non-Af Amer) POC Glucose (mg/dL) 97 Random Glucose Calcium Total Bilirubin Direct Bilirubin AST ALT Alkaline Phosphatase Total Protein Albumin Globulin Albumin/Globulin Ratio Attending/Attestation - Attestation I have personally seen and examined this patient.: Yes I have fully participated in the care of the patient.: Yes I have reviewed all pertinent clinical information: Yes Notes (Text): 08/04/17 18:45 Patient seen earlier today on GI rounds. This is a 52 yr old M w/ hx of HTN, DM , and HL who presents with RUQ in setting of acute cholecystitis with scheduled oR today. No s/s of choledocholithiasis. No indication for ERCP. Continue antibiotics as per surgery. LFT and CBD normal. Will sign off now. Thank you for letting us participate in the care of your patient
--- NOTE | 2017-08-04 15:22 | NM ---
PROCEDURE: Nuclear Medicine Hepatobiliary Scan HISTORY: rule out cholecystitis COMPARISON: August 03, 2017. Abdominal ultrasound TECHNIQUE: 5.3 mCi of technetium 99m Mebrofenin was administered intravenously. Planar images of the abdomen were obtained at 5 min intervals to 60 mins. Delayed images were also obtained. FINDINGS: LIVER: Timely and mildly heterogeneous uptake. COMMON BILE DUCT: identified at 10 mins. GALLBLADDER: Not identified at 60 mins. SMALL BOWEL: Identified at 15 mins. IMPRESSION: Abnormal Hepatobiliary Scan. The cystic duct is occluded, presumptive evidence for acute cholecystitis. Images obtained over 60 minutes. Delayed imaging were not obtained based on the absence of radionuclide within the gallbladder at the conclusion of the study, 1 hour.
[2017-08-04] MEDS ORDERED: Bupivacaine 0.5% Inj(30mL) ONE (16:46)
[2017-08-04] MEDS ORDERED: Lidocaine 1% Inj (20ml) ONE (16:46)
[2017-08-04] MEDS ORDERED: Lidocaine 4% (Laryng-O-Jet) Kit MM ONE (16:59)
[2017-08-04] MEDS ORDERED: Succinylcholine 200 mg/10 ml Inj IV ONE (17:01)
[2017-08-04] MEDS ORDERED: Propofol 10 mg/ml Inj (20 ML) ONE (17:01)
[2017-08-04] MEDS ORDERED: Phenylephrine 10 mg/ml Inj ONE (17:02)
[2017-08-04] MEDS ORDERED: Lactated Ringer's 1,000 ML IV ONE ×4 (17:23→22:10)
[2017-08-04] MEDS ORDERED: Midazolam 2 MG/2 ML VIAL ONE (17:29)
[2017-08-04] MEDS ORDERED: Rocuronium 10 mg/ml (5 ml) ONE (17:39)
[2017-08-04] MEDS ORDERED: ePHEDrine 50 mg/ml Inj ONE (17:47)
[2017-08-04] MEDS ORDERED: Potassium CL 10 MEQ/50 ML 50 ML IVPB SCH (18:00)
[2017-08-04] MEDS ORDERED: Sevoflurane - Inhalation Anesthetic Liq (250 ml) ONE (19:01)
[2017-08-04] MEDS ORDERED: Neostigmine Methylsulfate 3mg/3ml Syringe IV ONE (19:30)
--- NOTE | 2017-08-04 19:58 | PCM.SURG1 ---
Surgeon's Initial Post Op Note - Surgeon's Notes Surgeon: Dr. Leiva Blister Pack Operator: Chandrakant PGY2, PGY1 Pre-Operative Diagnosis: acute cholecystitis Operative Findings: necrotic gallbladder wall, multiple gallstones Post-Operative Diagnosis: Phlegmonous Acute Necrotic Cholecystitis Operation Performed: laparoscopic cholesytectomy w/ lysis of adhesions Specimen/Specimens Removed: gallbladder, bile, gallstones Estimated Blood Loss: EBL {In ML}: 100 Drains Used: Ortiz Date of Surgery/Procedure: 08/04/17 Time of Surgery/Procedure: 17:45
[2017-08-04] MEDS ORDERED: Lactated Ringer's 1,000 ML IV SCH ×2 (20:00→20:05)
[2017-08-04] MEDS: HYDROmorphone 0.5 mg/0.5 ml ISec IVP PRN ×3 (20:20→20:45)
[2017-08-04] MEDS ORDERED: Lactated Ringer's 1,000 ML IV PRN (21:22)
[2017-08-04] MEDS ORDERED: Piperacillin/Tazobact 3.375 gm Inj IVPB ONE (22:00)
[2017-08-05] MEDS: Lactated Ringer's 1,000 ML IV SCH ×2 (04:05→05:17)
[2017-08-05 06:16] LABS: BASO # 0.1 K/uL (0.0-0.2); BASO % 0.7 % (0.0-2.0); EOS # 0.1 K/uL (0.0-0.7); EOS % 0.5 % (0.0-4.0); HEMATOCRIT 36.6 % (35.0-51.0); LYMPH # 2.9 K/uL (1.0-4.3); LYMPH % 14.5 % (20.0-40.0); MEAN CORPUSCULAR HEMOGLOBIN 30.1 pg (27.0-31.0); MEAN CORPUSCULAR HGB CONC 33.1 g/dL (33.0-37.0); MEAN PLATELET VOLUME 8.9 fl (7.2-11.7); MONO # 2.2 K/uL (0.0-0.8); NEUT # 14.7 K/uL (1.8-7.0); NEUT % 73.3 % (50.0-75.0); RED CELL DISTRIBUTION WIDTH 13.2 % (11.5-14.5)
[2017-08-05 06:26] LABS: ALKALINE PHOSPHATASE 60 U/L (38-126); ALT/SGPT 55 U/L (21-72); AST/SGOT 54 U/L (17-59); BILIRUBIN,TOTAL 0.8 mg/dl (0.2-1.3); BLOOD UREA NITROGEN 14 mg/dl (9-20); CALCIUM 8.3 mg/dL (8.4-10.2); CARBON DIOXIDE 25 mmol/L (22-30); CHLORIDE 102 mmol/L (98-107); GFR AFRICAN-AMERICAN > 60; GLUCOSE,RANDOM 86 mg/dL (75-110); POTASSIUM 3.7 MMOL/L (3.6-5.0); SODIUM 139 mmol/l (132-148); TOTAL PROTEIN 6.7 G/DL (6.3-8.2)
--- NOTE | 2017-08-05 07:10 | CP.PCM.PN ---
<Mary Stallings - Last Filed: 08/05/17 07:31> Subjective - Date & Time of Evaluation Date of Evaluation: 08/05/17 Time of Evaluation: 06:40 - Subjective Subjective: Patient seen and examined at bedside this AM. Patient had hypotension and mild tachycardia overnight and was moved to the telemetry floor. He responded to fluid resuscitation and is currently normotensive and normocardic. Denies any nausea, vomiting, fevers, and tolerated CLD yesterday. Reports pain that is well managed with current regimen. Objective - Vital Signs/Intake and Output Vital Signs (last 24 hours): Temp Pulse Resp BP Pulse Ox 98.2 F 79 18 123/79 99 08/05/17 06:32 08/05/17 06:32 08/05/17 06:32 08/05/17 06:32 08/05/17 06:32 Intake and Output: 08/05/17 08/05/17 06:59 18:59 Intake Total 3700 Output Total 485 Balance 3215 - Medications Medications: Current Medications Acetaminophen (Tylenol 325mg Tab) 650 mg PO Q6 PRN PRN Reason: Fever >100.4 F Amlodipine Besylate (Norvasc) 10 mg PO DAILY [facility] Last Admin: 08/04/17 10:07 Dose: 10 mg Citalopram Hydrobromide (Celexa) 20 mg PO DAILY [facility] Last Admin: 08/04/17 10:07 Dose: 20 mg Famotidine (Pepcid) 20 mg IVP Q12 [facility] Last Admin: 08/04/17 23:51 Dose: 20 mg Hydrochlorothiazide (Hydrodiuril) 25 mg PO DAILY [facility] Last Admin: 08/04/17 10:07 Dose: 25 mg Hydromorphone HCl (Dilaudid) 1 mg IVP Q6 PRN PRN Reason: Pain, severe (8-10) Piperacillin Sod/Tazobactam (Sod 3.375 gm/ Sodium Chloride) 100 mls @ 100 mls/ hr IVPB Q12 [facility] Last Admin: 08/04/17 23:03 Dose: Not Given Lactated Ringer's (Lactated Ringer's) 1,000 mls @ 125 mls/hr IV .Q8H [facility] Stop: 08/06/17 20:06 Last Admin: 08/05/17 06:22 Dose: 125 mls/hr Lactated Ringer's (Lactated Ringer's) 1,000 mls @ 1,000 mls/hr IV .Q1H PRN PRN Reason: Hypotension Metoclopramide HCl (Reglan) 10 mg IVP Q6 PRN PRN Reason: Nausea/Vomiting Oxycodone/Acetaminophen (Percocet 5/325 Mg Tab) 1 tab PO Q6 PRN PRN Reason: Pain, moderate (4-7) Stop: 08/07/17 20:04 Valsartan (Diovan) 320 mg PO DAILY [facility] Last Admin: 08/04/17 10:17 Dose: 320 mg Ziprasidone (Geodon Cap) 20 mg PO DAILY [facility] Last Admin: 08/04/17 10:07 Dose: 20 mg Ziprasidone (Geodon) 160 mg PO HS [facility] Last Admin: 08/04/17 23:51 Dose: 160 mg - Labs Labs: 08/05/17 05:50 08/05/17 05:50 PT 13.6 Seconds (9.8-13.1) H 08/04/17 11:00 INR 1.3 (0.9-1.2) H 08/04/17 11:00 APTT 32.9 Seconds (25.6-37.1) 08/04/17 11:00 - Constitutional Appears: Non-toxic, No Acute Distress - Head Exam Head Exam: ATRAUMATIC, NORMOCEPHALIC - Eye Exam Eye Exam: Normal appearance. absent: Conjunctival injection, Scleral icterus - ENT Exam ENT Exam: Mucous Membranes Moist, Normal Oropharynx - Respiratory Exam Respiratory Exam: NORMAL BREATHING PATTERN. absent: Accessory Muscle Use, Respiratory Distress - Cardiovascular Exam Cardiovascular Exam: RRR - GI/Abdominal Exam GI & Abdominal Exam: Distended, Soft, Tenderness (appropriate tenderness RUQ and silvio-incisional) Additional comments: Surgical dressings c/d/i. Drain productive of sero-sanguinous output with some bile. - Extremities Exam Extremities Exam: absent: Calf Tenderness, Pedal Edema, Tenderness - Neurological Exam Neurological Exam: Alert, Awake, Oriented x3 - Psychiatric Exam Psychiatric exam: Normal Affect, Normal Mood - Skin Skin Exam: Dry, Normal Color, Warm Assessment and Plan - Assessment and Plan (Free Text) Assessment: 52M with acute cholecystitis POD#1 s/p cholecystectomy WBC trending down HGB stable Plan: -Continue to trend CBC and CMP -monitor drain output -advance diet to heart healthy diet -Continue IVF -Follow up gallbladder fluid culture -encourage ambulation and incentive spirometer use -continue PRN pain and nausea medication -D/C IVF once tolerating adequate PO intake Discussed with Dr. Cali Stallings, PGY2 <Richard Leiva - Last Filed: 08/09/17 20:53> Objective - Vital Signs/Intake and Output Vital Signs (last 24 hours): Temp Pulse Resp BP Pulse Ox 98.3 F 77 18 109/72 97 08/09/17 20:15 08/09/17 20:15 08/09/17 20:15 08/09/17 20:15 08/09/17 20:15 - Medications Medications: Current Medications Acetaminophen (Tylenol 325mg Tab) 650 mg PO Q6 PRN PRN Reason: Fever >100.4 F Amlodipine Besylate (Norvasc) 10 mg PO DAILY [facility] Last Admin: 08/09/17 08:24 Dose: 10 mg Citalopram Hydrobromide (Celexa) 20 mg PO DAILY [facility] Last Admin: 08/09/17 08:25 Dose: 20 mg Docusate Sodium (Colace) 100 mg PO DAILY PRN PRN Reason: constipation Famotidine (Pepcid) 20 mg PO BID [facility] Last Admin: 08/09/17 16:03 Dose: 20 mg Hydrochlorothiazide (Hydrodiuril) 25 mg PO DAILY [facility] Last Admin: 08/09/17 08:22 Dose: 25 mg Piperacillin Sod/Tazobactam (Sod 3.375 gm/ Sodium Chloride) 100 mls @ 100 mls/ hr IVPB Q6 [facility] Last Admin: 08/09/17 16:02 Dose: 100 mls/hr Metronidazole (Flagyl 500mg/100ml Ns) 100 mls @ 100 mls/hr IVPB Q8 [facility] Stop: 08/10/17 09:59 Last Admin: 08/09/17 16:06 Dose: 100 mls/hr Lactulose (Enulose) 10 gm PO DAILY PRN PRN Reason: Constipation Metoclopramide HCl (Reglan) 10 mg IVP Q6 PRN PRN Reason: Nausea/Vomiting Valsartan (Diovan) 320 mg PO DAILY [facility] Last Admin: 08/09/17 08:21 Dose: 320 mg Ziprasidone (Geodon Cap) 20 mg PO DAILY [facility] Last Admin: 08/09/17 08:25 Dose: 20 mg Ziprasidone (Geodon) 160 mg PO HS [facility] Last Admin: 08/08/17 21:11 Dose: 160 mg - Labs Labs: 08/09/17 05:30 08/09/17 05:30 PT 13.6 Seconds (9.8-13.1) H 08/04/17 11:00 INR 1.3 (0.9-1.2) H 08/04/17 11:00 APTT 32.9 Seconds (25.6-37.1) 08/04/17 11:00 Attending/Attestation - Attestation I have personally seen and examined this patient.: Yes I have fully participated in the care of the patient.: Yes I have reviewed all pertinent clinical information, including history, physical exam and plan: Yes Notes (Text): 08/09/17 20:52 Pt was seen and examined at bedside Agree with above note and assessment C.w IV antibiotics Reg low fat diabetic diet
[2017-08-05] MEDS ORDERED: Oxycodone/Acetaminophen 5/325 mg Tab PO PRN (07:36)
[2017-08-05] MEDS: Potassium Ch 20mEq in D5-1/2NS 1,000 ML IV SCH ×2 (08:30→21:32)
[2017-08-05] MEDS: Piperacillin/Tazobact 3.375 GM in Sodium Chloride 0.9% 100 ML IVPB SCH ×2 (08:44→21:28)
[2017-08-05] MEDS: Oxycodone/Acetaminophen 5/325 mg Tab PO PRN ×2 (10:03→18:39)
--- NOTE | 2017-08-05 11:19 | CP.PCM.PN ---
<Kamron Man - Last Filed: 08/05/17 11:16> Subjective - Date & Time of Evaluation Date of Evaluation: 08/05/17 Time of Evaluation: 11:16 - Subjective Subjective: pt seen and examined at bedside this morning with attending. POD#1. Pt had an episode of hypotension s/p surgery so was moved to [facility] by anesthesia team for overnight surviellance. Uneventful overnight, vitals stable, afebrile. Pt complaints of RUQ pain, however it is secondary to surgical manipulaton. Objective - Vital Signs/Intake and Output Vital Signs (last 24 hours): Temp Pulse Resp BP Pulse Ox 98.8 F 74 20 123/78 90 L 08/05/17 08:00 08/05/17 08:00 08/05/17 08:00 08/05/17 08:00 08/05/17 08:00 Intake and Output: 08/05/17 08/05/17 06:59 18:59 Intake Total 3700 Output Total 485 Balance 3215 - Medications Medications: Current Medications Acetaminophen (Tylenol 325mg Tab) 650 mg PO Q6 PRN PRN Reason: Fever >100.4 F Amlodipine Besylate (Norvasc) 10 mg PO DAILY [facility] Last Admin: 08/04/17 10:07 Dose: 10 mg Citalopram Hydrobromide (Celexa) 20 mg PO DAILY [facility] Last Admin: 08/05/17 08:44 Dose: 20 mg Famotidine (Pepcid) 20 mg IVP Q12 [facility] Last Admin: 08/05/17 08:53 Dose: 20 mg Hydrochlorothiazide (Hydrodiuril) 25 mg PO DAILY [facility] Last Admin: 08/04/17 10:07 Dose: 25 mg Piperacillin Sod/Tazobactam (Sod 3.375 gm/ Sodium Chloride) 100 mls @ 100 mls/ hr IVPB Q12 [facility] Last Admin: 08/05/17 08:44 Dose: 100 mls/hr Lactated Ringer's (Lactated Ringer's) 1,000 mls @ 1,000 mls/hr IV .Q1H PRN PRN Reason: Hypotension Potassium Chloride/Dextrose/Sod Cl (Potassium Chl 20 Meq In D5-1/2ns) 1,000 mls @ 80 mls/hr IV .[id number] [facility] Stop: 08/06/17 07:53 Metoclopramide HCl (Reglan) 10 mg IVP Q6 PRN PRN Reason: Nausea/Vomiting Oxycodone/Acetaminophen (Percocet 5/325 Mg Tab) 1 tab PO Q6 PRN PRN Reason: Pain, moderate (4-7) Stop: 08/07/17 20:04 Last Admin: 08/05/17 10:03 Dose: 1 tab Oxycodone/Acetaminophen (Percocet 5/325 Mg Tab) 2 tab PO Q6 PRN PRN Reason: Pain, severe (8-10) Stop: 08/08/17 07:37 Valsartan (Diovan) 320 mg PO DAILY [facility] Last Admin: 08/04/17 10:17 Dose: 320 mg Ziprasidone (Geodon Cap) 20 mg PO DAILY [facility] Last Admin: 08/05/17 08:44 Dose: 20 mg Ziprasidone (Geodon) 160 mg PO HS [facility] Last Admin: 08/04/17 23:51 Dose: 160 mg - Labs Labs: 08/05/17 05:50 08/05/17 05:50 PT 13.6 Seconds (9.8-13.1) H 08/04/17 11:00 INR 1.3 (0.9-1.2) H 08/04/17 11:00 APTT 32.9 Seconds (25.6-37.1) 08/04/17 11:00 - Constitutional Appears: Non-toxic, No Acute Distress - ENT Exam ENT Exam: Mucous Membranes Moist - Respiratory Exam Respiratory Exam: Clear to Ausculation Bilateral, NORMAL BREATHING PATTERN. absent: Accessory Muscle Use, Decreased Breath Sounds, Rales, Rhonchi, Wheezes - Cardiovascular Exam Cardiovascular Exam: REGULAR RHYTHM, RRR, +S1, +S2. absent: Tachycardia, JVD, Rubs - GI/Abdominal Exam GI & Abdominal Exam: Soft, Tenderness (tenderness around incision site), Normal Bowel Sounds. absent: Distended, Firm, Guarding, Rigid, Mass - Neurological Exam Neurological Exam: Alert, Awake, Oriented x3 Assessment and Plan (1) Acute cholecystitis Assessment & Plan: POD#1 -pain control as ordered -IVF hydration -monitor vitals, trend CBC/CMP -advance diet as tolerated -drain output being followed by gen surg team -incentive spirometry Status: Acute (2) Essential (primary) hypertension Assessment & Plan: c/w home meds Status: Acute (3) Prophylactic measure Assessment & Plan: scds prn, ambulation Status: Acute <[place] K - Last Filed: 08/07/17 16:28> Objective - Vital Signs/Intake and Output Vital Signs (last 24 hours): Temp Pulse Resp BP Pulse Ox 98.0 F 79 19 133/76 97 08/07/17 16:13 08/07/17 16:13 08/07/17 16:13 08/07/17 16:13 08/07/17 16:13 Intake and Output: 08/07/17 08/07/17 06:59 18:59 Intake Total 500 Output Total 820 Balance -320 - Medications Medications: Current Medications Acetaminophen (Tylenol 325mg Tab) 650 mg PO Q6 PRN PRN Reason: Fever >100.4 F Amlodipine Besylate (Norvasc) 10 mg PO DAILY [facility] Last Admin: 08/07/17 09:11 Dose: 10 mg Citalopram Hydrobromide (Celexa) 20 mg PO DAILY [facility] Last Admin: 08/07/17 09:11 Dose: 20 mg Docusate Sodium (Colace) 100 mg PO DAILY PRN PRN Reason: constipation Famotidine (Pepcid) 20 mg PO BID [facility] Last Admin: 08/07/17 09:13 Dose: 20 mg Hydrochlorothiazide (Hydrodiuril) 25 mg PO DAILY [facility] Last Admin: 08/07/17 09:11 Dose: 25 mg Meropenem 1 gm/ Sodium (Chloride) 100 mls @ 100 mls/hr IVPB Q8 [facility] Lactulose (Enulose) 10 gm PO DAILY PRN PRN Reason: Constipation Metoclopramide HCl (Reglan) 10 mg IVP Q6 PRN PRN Reason: Nausea/Vomiting Oxycodone/Acetaminophen (Percocet 5/325 Mg Tab) 1 tab PO Q6 PRN PRN Reason: Pain, moderate (4-7) Stop: 08/07/17 20:04 Last Admin: 08/07/17 04:31 Dose: 1 tab Oxycodone/Acetaminophen (Percocet 5/325 Mg Tab) 2 tab PO Q6 PRN PRN Reason: Pain, severe (8-10) Stop: 08/08/17 07:37 Last Admin: 08/06/17 08:19 Dose: 2 tab Valsartan (Diovan) 320 mg PO DAILY [facility] Last Admin: 08/07/17 09:11 Dose: 320 mg Ziprasidone (Geodon Cap) 20 mg PO DAILY [facility] Last Admin: 08/07/17 09:11 Dose: 20 mg Ziprasidone (Geodon) 160 mg PO HS [facility] Last Admin: 08/06/17 21:21 Dose: 160 mg - Labs Labs: 08/07/17 04:15 08/07/17 04:15 PT 13.6 Seconds (9.8-13.1) H 08/04/17 11:00 INR 1.3 (0.9-1.2) H 08/04/17 11:00 APTT 32.9 Seconds (25.6-37.1) 08/04/17 11:00 Assessment and Plan - Assessment and Plan (Free Text) Assessment: Patient was personally seen and examined by me in rounds with residents. Available labs and diagnostic data reviewed. Case, Patient's condition and management plan Discussed with residents in rounds. Agree with resident's progress note. Plan: As ordered.
--- NOTE | 2017-08-05 15:14 | OP ---
PROCEDURE DATE: 08/04/2017 PREOPERATIVE DIAGNOSES: Acute cholecystitis and cholelithiasis. POSTOPERATIVE DIAGNOSES: 1. Acute phlegmonous necrotizing cholecystitis. 2. Extensive postinfectious adhesion. 3. Extensive pericholecystic fluid collection. PROCEDURE: 1. Laparoscopic cholecystectomy. 2. Laparoscopic extensive lysis of adhesions. 3. Laparoscopic drainage of gallbladder as well as the pericholecystic fluid collection. SURGEON: Richard Leiva MD SIDE SAWYER: Mary Stallings TYPE OF ANESTHESIA: General endotracheal tube anesthesia. INTRAOPERATIVE FINDINGS: The patient had acute necrotizing phlegmonous cholecystitis with extensive postinfectious adhesion in the right upper quadrant from the omentum to the liver, omentum to the gallbladder, colon to the gallbladder, duodenum to the gallbladder, and there was a pericholecystic fluid collection as well as the gallbladder was extremely edematous and distended and there was a patch of necrosis on the gallbladder wall and due to morbid obesity and due to the extensive adhesion, it took approximately 60 to 80 minutes extra for the routine procedure and on intraoperative steps. ESTIMATED BLOOD LOSS: Around 10 mL. DRAIN: A 19-Georgian Ortiz drain was placed. PATHOLOGY: Gallbladder and gallstone were sent for pathology. COMPLICATIONS: None. DESCRIPTION OF PROCEDURE: This 52-year-old male was diagnosed with acute cholecystitis and cholelithiasis and the patient also had uncontrolled diabetes and the patient was consented for the laparoscopic cholecystectomy, possible open,brought to the OR, placed on an operating table. After induction of the anesthesia, abdomen was prepped and draped in the usual sterile fashion. A supraumbilical transverse incision was made. After incising skin and subcutaneous tissue, the fascia was incised. A 12 mm port was placed in the midline below costal margin. Two 5 mm port were placed in midclavicular and anterior axillary line. After that, the patient was placed in right side up head-up position and then the patient was found to have extensive phlegmonous mass and the first lysis of adhesion was done from the omentum to the liver, omentum to the gallbladder, colon to the gallbladder and duodenum to the gallbladder and with blunt and sharp dissection and after achieving proper hemostasis, the body of the gallbladder as well as infundibulum were identified and due to extensive dilatation of the gallbladder, the gallbladder was aspirated and the pericholecystic fluid was also drained and now the Calot's triangle was identified. The Calot's triangle dissection was done. The cystic duct and cystic artery were identified and the common bile duct was also identified. A critical view of the safety was identified and cystic duct and cystic artery were clipped at three places and cut in between two clips in the gallbladder. The gallbladder was dissected free from the gallbladder fossa and appropriate hemostasis was achieved from the gallbladder fossa and the posterior gallbladder wall was completely necrosed and the whole gallbladder was removed with the stone and there was some spillage of the stone that was all taken out and after proper suction, irrigation and proper hemostasis, the drain was placed and the suction irrigation of the gallbladder fossa as well as perihepatic area was done and all the instruments were taken out under vision. Pneumo was deflated. All the port was also taken out and the umbilical port site was closed in 2 layers, the fascia with 0 Vicryl interrupted sutures, skin with 4-0 Monocryl, and dry sterile dressing was applied. The patient tolerated the procedure well. Count of instrument was correct. There was no apparent complication. The patient was extubated in the OR, sent to the Postanesthesia Care Unit in stable condition. Richard Leiva MD
[2017-08-06 06:31] LABS: ALB/GLOB RATIO 0.9 (1.0-2.1); ALKALINE PHOSPHATASE 56 U/L (38-126); ALT/SGPT 53 U/L (21-72); AST/SGOT 39 U/L (17-59); BILIRUBIN,TOTAL 0.5 mg/dl (0.2-1.3); BLOOD UREA NITROGEN 12 mg/dl (9-20); CALCIUM 8.2 mg/dL (8.4-10.2); CARBON DIOXIDE 24 mmol/L (22-30); CHLORIDE 106 mmol/L (98-107); GFR AFRICAN-AMERICAN > 60; GLUCOSE,RANDOM 89 mg/dL (75-110); SODIUM 142 mmol/l (132-148); TOTAL PROTEIN 6.6 G/DL (6.3-8.2)
[2017-08-06 06:35] LABS: BASO # 0.1 K/uL (0.0-0.2); BASO % 0.5 % (0.0-2.0); EOS # 0.5 K/uL (0.0-0.7); HEMATOCRIT 34.5 % (35.0-51.0); LYMPH # 2.4 K/uL (1.0-4.3); LYMPH % 15.7 % (20.0-40.0); MEAN CELL VOLUME 91.2 fl (80.0-94.0); MEAN CORPUSCULAR HEMOGLOBIN 30.1 pg (27.0-31.0); NEUT # 10.4 K/uL (1.8-7.0); NEUT % 67.8 % (50.0-75.0); RED CELL DISTRIBUTION WIDTH 13.6 % (11.5-14.5); WHITE BLOOD COUNT 15.3 K/uL (4.8-10.8)
[2017-08-06] MEDS: Piperacillin/Tazobact 3.375 GM in Sodium Chloride 0.9% 100 ML IVPB SCH ×2 (08:25→22:00)
--- NOTE | 2017-08-06 09:47 | CP.PCM.PN ---
<Kamron Man - Last Filed: 08/06/17 12:21> Subjective - Date & Time of Evaluation Date of Evaluation: 08/06/17 Time of Evaluation: 09:45 - Subjective Subjective: pt seen and examined at bedside this morning with attending. No acute events overnight. Pt remained afebrile. Pt reports improved RUQ pain and has tolerated PO intake w/o difficulty. OOB/ambulating without dizziness. No new complaints. Reports feeling well overall, and is doing well on POD#2. Denies fever/chills, headaches, changes in vision, CP/SOB/Palpitations, N/V/D, urinary symptoms, numbness/tingling, calf pain. Objective - Vital Signs/Intake and Output Vital Signs (last 24 hours): Temp Pulse Resp BP Pulse Ox 99.1 F 77 18 117/80 100 08/06/17 08:00 08/06/17 08:27 08/06/17 08:00 08/06/17 08:27 08/06/17 08:00 Intake and Output: 08/06/17 08/06/17 06:59 18:59 Intake Total 2625 Output Total 2500 Balance 125 - Medications Medications: Current Medications Acetaminophen (Tylenol 325mg Tab) 650 mg PO Q6 PRN PRN Reason: Fever >100.4 F Amlodipine Besylate (Norvasc) 10 mg PO DAILY [facility] Last Admin: 08/06/17 08:27 Dose: 10 mg Citalopram Hydrobromide (Celexa) 20 mg PO DAILY [facility] Last Admin: 08/06/17 08:25 Dose: 20 mg Famotidine (Pepcid) 20 mg PO BID [facility] Last Admin: 08/06/17 08:27 Dose: 20 mg Hydrochlorothiazide (Hydrodiuril) 25 mg PO DAILY [facility] Last Admin: 08/06/17 08:26 Dose: 25 mg Piperacillin Sod/Tazobactam (Sod 3.375 gm/ Sodium Chloride) 100 mls @ 100 mls/ hr IVPB Q12 [facility] Last Admin: 08/06/17 08:25 Dose: 100 mls/hr Lactated Ringer's (Lactated Ringer's) 1,000 mls @ 1,000 mls/hr IV .Q1H PRN PRN Reason: Hypotension Metoclopramide HCl (Reglan) 10 mg IVP Q6 PRN PRN Reason: Nausea/Vomiting Oxycodone/Acetaminophen (Percocet 5/325 Mg Tab) 1 tab PO Q6 PRN PRN Reason: Pain, moderate (4-7) Stop: 08/07/17 20:04 Last Admin: 08/05/17 18:39 Dose: 1 tab Oxycodone/Acetaminophen (Percocet 5/325 Mg Tab) 2 tab PO Q6 PRN PRN Reason: Pain, severe (8-10) Stop: 08/08/17 07:37 Last Admin: 08/06/17 08:19 Dose: 2 tab Valsartan (Diovan) 320 mg PO DAILY [facility] Last Admin: 08/06/17 08:25 Dose: 320 mg Ziprasidone (Geodon Cap) 20 mg PO DAILY [facility] Last Admin: 08/06/17 08:26 Dose: 20 mg Ziprasidone (Geodon) 160 mg PO HS [facility] Last Admin: 08/05/17 21:28 Dose: 160 mg - Labs Labs: 08/06/17 05:40 08/06/17 05:40 PT 13.6 Seconds (9.8-13.1) H 08/04/17 11:00 INR 1.3 (0.9-1.2) H 08/04/17 11:00 APTT 32.9 Seconds (25.6-37.1) 08/04/17 11:00 - Constitutional Appears: Non-toxic, No Acute Distress - Eye Exam Eye Exam: EOMI. absent: Conjunctival injection, Scleral icterus Pupil Exam: PERRL - ENT Exam ENT Exam: Mucous Membranes Moist - Neck Exam Neck Exam: Full ROM - Respiratory Exam Respiratory Exam: Clear to Ausculation Bilateral, NORMAL BREATHING PATTERN. absent: Rales, Rhonchi, Wheezes - Cardiovascular Exam Cardiovascular Exam: REGULAR RHYTHM, RRR, +S1, +S2. absent: Tachycardia, JVD, Rubs, Murmur - GI/Abdominal Exam GI & Abdominal Exam: Soft, Tenderness, Normal Bowel Sounds. absent: Distended, Firm, Guarding, Rigid, Rebound - Extremities Exam Extremities Exam: Full ROM, Normal Capillary Refill, Normal Inspection. absent : Pedal Edema, Tenderness - Neurological Exam Neurological Exam: Alert, Awake, CN II-XII Intact, Oriented x3 - Skin Skin Exam: Dry, Normal Color, Warm Assessment and Plan (1) Acute cholecystitis Assessment & Plan: POD#2, pt is tolerating PO intake, no longer needs IVF Pain control monitor vitals/cbc will f/u gen surg recommnedations Status: Acute (2) Essential (primary) hypertension Assessment & Plan: as ordered Status: Acute (3) Prophylactic measure Assessment & Plan: as ordered Status: Acute <Nicholson,[place] K - Last Filed: 08/07/17 16:29> Objective - Vital Signs/Intake and Output Vital Signs (last 24 hours): Temp Pulse Resp BP Pulse Ox 98.0 F 79 19 133/76 97 08/07/17 16:13 08/07/17 16:13 08/07/17 16:13 08/07/17 16:13 08/07/17 16:13 Intake and Output: 08/07/17 08/07/17 06:59 18:59 Intake Total 500 Output Total 820 Balance -320 - Medications Medications: Current Medications Acetaminophen (Tylenol 325mg Tab) 650 mg PO Q6 PRN PRN Reason: Fever >100.4 F Amlodipine Besylate (Norvasc) 10 mg PO DAILY [facility] Last Admin: 08/07/17 09:11 Dose: 10 mg Citalopram Hydrobromide (Celexa) 20 mg PO DAILY [facility] Last Admin: 08/07/17 09:11 Dose: 20 mg Docusate Sodium (Colace) 100 mg PO DAILY PRN PRN Reason: constipation Famotidine (Pepcid) 20 mg PO BID [facility] Last Admin: 08/07/17 09:13 Dose: 20 mg Hydrochlorothiazide (Hydrodiuril) 25 mg PO DAILY [facility] Last Admin: 08/07/17 09:11 Dose: 25 mg Meropenem 1 gm/ Sodium (Chloride) 100 mls @ 100 mls/hr IVPB Q8 [facility] Lactulose (Enulose) 10 gm PO DAILY PRN PRN Reason: Constipation Metoclopramide HCl (Reglan) 10 mg IVP Q6 PRN PRN Reason: Nausea/Vomiting Oxycodone/Acetaminophen (Percocet 5/325 Mg Tab) 1 tab PO Q6 PRN PRN Reason: Pain, moderate (4-7) Stop: 08/07/17 20:04 Last Admin: 08/07/17 04:31 Dose: 1 tab Oxycodone/Acetaminophen (Percocet 5/325 Mg Tab) 2 tab PO Q6 PRN PRN Reason: Pain, severe (8-10) Stop: 08/08/17 07:37 Last Admin: 08/06/17 08:19 Dose: 2 tab Valsartan (Diovan) 320 mg PO DAILY [facility] Last Admin: 08/07/17 09:11 Dose: 320 mg Ziprasidone (Geodon Cap) 20 mg PO DAILY [facility] Last Admin: 08/07/17 09:11 Dose: 20 mg Ziprasidone (Geodon) 160 mg PO HS [facility] Last Admin: 08/06/17 21:21 Dose: 160 mg - Labs Labs: 08/07/17 04:15 08/07/17 04:15 PT 13.6 Seconds (9.8-13.1) H 08/04/17 11:00 INR 1.3 (0.9-1.2) H 08/04/17 11:00 APTT 32.9 Seconds (25.6-37.1) 08/04/17 11:00 Assessment and Plan - Assessment and Plan (Free Text) Assessment: Patient was personally seen and examined by me in rounds with residents. Available labs and diagnostic data reviewed. Case, Patient's condition and management plan Discussed with residents in rounds. Agree with resident's progress note. Plan: As ordered.
--- NOTE | 2017-08-06 10:20 | CP.PCM.PN ---
<Mary Stallings - Last Filed: 08/06/17 11:47> Subjective - Date & Time of Evaluation Date of Evaluation: 08/06/17 Time of Evaluation: 10:20 - Subjective Subjective: Patient seen and examined at bedside this AM. Patient denies pain, nausea, vomiting, states he is having bowel movements or regular color and consistency and tolerating heart healthy diet. Objective - Vital Signs/Intake and Output Vital Signs (last 24 hours): Temp Pulse Resp BP Pulse Ox 99.1 F 77 18 117/80 100 08/06/17 08:00 08/06/17 09:00 08/06/17 08:00 08/06/17 08:27 08/06/17 08:00 Intake and Output: 08/06/17 08/06/17 06:59 18:59 Intake Total 2625 Output Total 2500 Balance 125 - Medications Medications: Current Medications Acetaminophen (Tylenol 325mg Tab) 650 mg PO Q6 PRN PRN Reason: Fever >100.4 F Amlodipine Besylate (Norvasc) 10 mg PO DAILY [facility] Last Admin: 08/06/17 08:27 Dose: 10 mg Citalopram Hydrobromide (Celexa) 20 mg PO DAILY [facility] Last Admin: 08/06/17 08:25 Dose: 20 mg Famotidine (Pepcid) 20 mg PO BID [facility] Last Admin: 08/06/17 08:27 Dose: 20 mg Hydrochlorothiazide (Hydrodiuril) 25 mg PO DAILY [facility] Last Admin: 08/06/17 08:26 Dose: 25 mg Piperacillin Sod/Tazobactam (Sod 3.375 gm/ Sodium Chloride) 100 mls @ 100 mls/ hr IVPB Q12 [facility] Last Admin: 08/06/17 08:25 Dose: 100 mls/hr Metoclopramide HCl (Reglan) 10 mg IVP Q6 PRN PRN Reason: Nausea/Vomiting Oxycodone/Acetaminophen (Percocet 5/325 Mg Tab) 1 tab PO Q6 PRN PRN Reason: Pain, moderate (4-7) Stop: 08/07/17 20:04 Last Admin: 08/05/17 18:39 Dose: 1 tab Oxycodone/Acetaminophen (Percocet 5/325 Mg Tab) 2 tab PO Q6 PRN PRN Reason: Pain, severe (8-10) Stop: 08/08/17 07:37 Last Admin: 08/06/17 08:19 Dose: 2 tab Valsartan (Diovan) 320 mg PO DAILY [facility] Last Admin: 08/06/17 08:25 Dose: 320 mg Ziprasidone (Geodon Cap) 20 mg PO DAILY [facility] Last Admin: 08/06/17 08:26 Dose: 20 mg Ziprasidone (Geodon) 160 mg PO HS [facility] Last Admin: 08/05/17 21:28 Dose: 160 mg - Labs Labs: 08/06/17 05:40 08/06/17 05:40 PT 13.6 Seconds (9.8-13.1) H 08/04/17 11:00 INR 1.3 (0.9-1.2) H 08/04/17 11:00 APTT 32.9 Seconds (25.6-37.1) 08/04/17 11:00 - Constitutional Appears: Non-toxic, No Acute Distress - Head Exam Head Exam: ATRAUMATIC, NORMOCEPHALIC - Eye Exam Eye Exam: Normal appearance. absent: Conjunctival injection, Scleral icterus - ENT Exam ENT Exam: Mucous Membranes Moist, Normal Oropharynx - Respiratory Exam Respiratory Exam: NORMAL BREATHING PATTERN. absent: Accessory Muscle Use, Respiratory Distress - Cardiovascular Exam Cardiovascular Exam: RRR - GI/Abdominal Exam GI & Abdominal Exam: Distended, Soft, Tenderness (mild tenderness RUQ) Additional comments: Dressings c/d/i. Ortiz drain with minimal sero-sanguinous fluid output - Extremities Exam Extremities Exam: absent: Calf Tenderness, Pedal Edema, Tenderness - Neurological Exam Neurological Exam: Alert, Awake, Oriented x3 - Psychiatric Exam Psychiatric exam: Normal Affect, Normal Mood - Skin Skin Exam: Dry, Normal Color, Warm Assessment and Plan - Assessment and Plan (Free Text) Assessment: 52M POD#2 s/p laparoscopic cholecystectomy and lysis of adhesion Patient clinically improving, VSS, afebrile, WBC 15.3 down from 20 yesterday, LFT's wnl Plan: - continue to trend CBC - Continue IV abx and hospitalization given elevated WBC 15.3 - Continue regular diet - Monitor drain output - Encourage ambulation and incentive spirometer - Can D/C IVF - DVT/GI ppx Discussed with Dr. Cali Stallings, PGY2 <Richard Leiva B - Last Filed: 08/09/17 20:54> Objective - Vital Signs/Intake and Output Vital Signs (last 24 hours): Temp Pulse Resp BP Pulse Ox 98.3 F 77 18 109/72 97 08/09/17 20:15 08/09/17 20:15 08/09/17 20:15 08/09/17 20:15 08/09/17 20:15 - Medications Medications: Current Medications Acetaminophen (Tylenol 325mg Tab) 650 mg PO Q6 PRN PRN Reason: Fever >100.4 F Amlodipine Besylate (Norvasc) 10 mg PO DAILY [facility] Last Admin: 08/09/17 08:24 Dose: 10 mg Citalopram Hydrobromide (Celexa) 20 mg PO DAILY [facility] Last Admin: 08/09/17 08:25 Dose: 20 mg Docusate Sodium (Colace) 100 mg PO DAILY PRN PRN Reason: constipation Famotidine (Pepcid) 20 mg PO BID [facility] Last Admin: 08/09/17 16:03 Dose: 20 mg Hydrochlorothiazide (Hydrodiuril) 25 mg PO DAILY [facility] Last Admin: 08/09/17 08:22 Dose: 25 mg Piperacillin Sod/Tazobactam (Sod 3.375 gm/ Sodium Chloride) 100 mls @ 100 mls/ hr IVPB Q6 [facility] Last Admin: 08/09/17 16:02 Dose: 100 mls/hr Metronidazole (Flagyl 500mg/100ml Ns) 100 mls @ 100 mls/hr IVPB Q8 [facility] Stop: 08/10/17 09:59 Last Admin: 08/09/17 16:06 Dose: 100 mls/hr Lactulose (Enulose) 10 gm PO DAILY PRN PRN Reason: Constipation Metoclopramide HCl (Reglan) 10 mg IVP Q6 PRN PRN Reason: Nausea/Vomiting Valsartan (Diovan) 320 mg PO DAILY [facility] Last Admin: 08/09/17 08:21 Dose: 320 mg Ziprasidone (Geodon Cap) 20 mg PO DAILY [facility] Last Admin: 08/09/17 08:25 Dose: 20 mg Ziprasidone (Geodon) 160 mg PO HS [facility] Last Admin: 08/08/17 21:11 Dose: 160 mg - Labs Labs: 08/09/17 05:30 08/09/17 05:30 PT 13.6 Seconds (9.8-13.1) H 08/04/17 11:00 INR 1.3 (0.9-1.2) H 08/04/17 11:00 APTT 32.9 Seconds (25.6-37.1) 08/04/17 11:00 Attending/Attestation - Attestation I have personally seen and examined this patient.: Yes I have fully participated in the care of the patient.: Yes I have reviewed all pertinent clinical information, including history, physical exam and plan: Yes Notes (Text): 08/09/17 20:53 Pt was seen and examined at bedside Agree with above note and assessment C.w IV antibiotics
[2017-08-07] MEDS: Oxycodone/Acetaminophen 5/325 mg Tab PO PRN (04:31)
[2017-08-07 05:28] LABS: HEMATOCRIT 35.7 % (35.0-51.0); MEAN CELL VOLUME 91.1 fl (80.0-94.0); MEAN CORPUSCULAR HEMOGLOBIN 30.3 pg (27.0-31.0); MEAN CORPUSCULAR HGB CONC 33.2 g/dL (33.0-37.0); RED CELL DISTRIBUTION WIDTH 13.2 % (11.5-14.5)
[2017-08-07 05:40] LABS: BLOOD UREA NITROGEN 11 mg/dl (9-20); CALCIUM 8.9 mg/dL (8.4-10.2); CARBON DIOXIDE 24 mmol/L (22-30); CHLORIDE 105 mmol/L (98-107); GFR AFRICAN-AMERICAN > 60; GLUCOSE,RANDOM 89 mg/dL (75-110); POTASSIUM 3.9 MMOL/L (3.6-5.0); SODIUM 141 mmol/l (132-148)
--- NOTE | 2017-08-07 08:51 | CP.PCM.PN ---
<Mary Stallings - Last Filed: 08/07/17 09:41> Subjective - Date & Time of Evaluation Date of Evaluation: 08/07/17 Time of Evaluation: 07:10 - Subjective Subjective: Patient seen and examined at bedside this AM. NAEO. Patient denies any pain, nausea, vomiting, fevers, or chills. Tolerating regular diet. 55cc's of clear serosanguinous fluid in the drain Objective - Vital Signs/Intake and Output Vital Signs (last 24 hours): Temp Pulse Resp BP Pulse Ox 98.1 F 71 18 113/73 93 L 08/07/17 07:59 08/07/17 07:59 08/07/17 07:59 08/07/17 07:59 08/07/17 07:59 Intake and Output: 08/07/17 08/07/17 06:59 18:59 Intake Total 500 Output Total 820 Balance -320 - Medications Medications: Current Medications Acetaminophen (Tylenol 325mg Tab) 650 mg PO Q6 PRN PRN Reason: Fever >100.4 F Amlodipine Besylate (Norvasc) 10 mg PO DAILY [facility] Last Admin: 08/06/17 08:27 Dose: 10 mg Citalopram Hydrobromide (Celexa) 20 mg PO DAILY [facility] Last Admin: 08/06/17 08:25 Dose: 20 mg Famotidine (Pepcid) 20 mg PO BID [facility] Last Admin: 08/06/17 16:12 Dose: 20 mg Hydrochlorothiazide (Hydrodiuril) 25 mg PO DAILY [facility] Last Admin: 08/06/17 08:26 Dose: 25 mg Piperacillin Sod/Tazobactam (Sod 3.375 gm/ Sodium Chloride) 100 mls @ 100 mls/ hr IVPB Q12 [facility] Last Admin: 08/06/17 22:00 Dose: 100 mls/hr Metoclopramide HCl (Reglan) 10 mg IVP Q6 PRN PRN Reason: Nausea/Vomiting Oxycodone/Acetaminophen (Percocet 5/325 Mg Tab) 1 tab PO Q6 PRN PRN Reason: Pain, moderate (4-7) Stop: 08/07/17 20:04 Last Admin: 08/07/17 04:31 Dose: 1 tab Oxycodone/Acetaminophen (Percocet 5/325 Mg Tab) 2 tab PO Q6 PRN PRN Reason: Pain, severe (8-10) Stop: 08/08/17 07:37 Last Admin: 08/06/17 08:19 Dose: 2 tab Valsartan (Diovan) 320 mg PO DAILY [facility] Last Admin: 08/06/17 08:25 Dose: 320 mg Ziprasidone (Geodon Cap) 20 mg PO DAILY [facility] Last Admin: 08/06/17 08:26 Dose: 20 mg Ziprasidone (Geodon) 160 mg PO HS [facility] Last Admin: 08/06/17 21:21 Dose: 160 mg - Labs Labs: 08/07/17 04:15 08/07/17 04:15 PT 13.6 Seconds (9.8-13.1) H 08/04/17 11:00 INR 1.3 (0.9-1.2) H 08/04/17 11:00 APTT 32.9 Seconds (25.6-37.1) 08/04/17 11:00 - Constitutional Appears: Non-toxic, No Acute Distress - Head Exam Head Exam: ATRAUMATIC, NORMOCEPHALIC - Eye Exam Eye Exam: Normal appearance. absent: Conjunctival injection, Scleral icterus - ENT Exam ENT Exam: Mucous Membranes Moist, Normal Oropharynx - Respiratory Exam Respiratory Exam: NORMAL BREATHING PATTERN. absent: Accessory Muscle Use, Respiratory Distress - Cardiovascular Exam Cardiovascular Exam: RRR - GI/Abdominal Exam GI & Abdominal Exam: Distended, Soft. absent: Guarding, Rigid, Tenderness Additional comments: bella drain in the RLQ productive of clear sero-sanguinous fluid. surgical dressing c/d/i. Small skin blisters at the edge of the tape of one surgical dressing. - Extremities Exam Extremities Exam: absent: Calf Tenderness, Pedal Edema, Tenderness - Neurological Exam Neurological Exam: Alert, Awake, Oriented x3 - Psychiatric Exam Psychiatric exam: Normal Affect, Normal Mood - Skin Skin Exam: Dry, Normal Color, Warm Additional comments: skin blister as described in abdominal exam Assessment and Plan - Assessment and Plan (Free Text) Assessment: 52M POD#3 s/p laparoscopic cholecystectomy and lysis of adhesion Patient clinically improving, VSS, afebrile, WBC 15.0 down from 15.0 yesterday, LFT's wnl Plan: - continue to trend CBC - Given persistent WBC elevation, recommend ID consult and switching to IV merropenem - Continue heart healthy - Monitor drain output - Encourage ambulation and incentive spirometer - DVT/GI ppx Discussed with Dr. Cali Stallings, PGY2 <Richard Leiva - Last Filed: 08/09/17 20:54> Objective - Vital Signs/Intake and Output Vital Signs (last 24 hours): Temp Pulse Resp BP Pulse Ox 98.3 F 77 18 109/72 97 08/09/17 20:15 08/09/17 20:15 08/09/17 20:15 08/09/17 20:15 08/09/17 20:15 - Medications Medications: Current Medications Acetaminophen (Tylenol 325mg Tab) 650 mg PO Q6 PRN PRN Reason: Fever >100.4 F Amlodipine Besylate (Norvasc) 10 mg PO DAILY [facility] Last Admin: 08/09/17 08:24 Dose: 10 mg Citalopram Hydrobromide (Celexa) 20 mg PO DAILY [facility] Last Admin: 08/09/17 08:25 Dose: 20 mg Docusate Sodium (Colace) 100 mg PO DAILY PRN PRN Reason: constipation Famotidine (Pepcid) 20 mg PO BID [facility] Last Admin: 08/09/17 16:03 Dose: 20 mg Hydrochlorothiazide (Hydrodiuril) 25 mg PO DAILY [facility] Last Admin: 08/09/17 08:22 Dose: 25 mg Piperacillin Sod/Tazobactam (Sod 3.375 gm/ Sodium Chloride) 100 mls @ 100 mls/ hr IVPB Q6 [facility] Last Admin: 08/09/17 16:02 Dose: 100 mls/hr Metronidazole (Flagyl 500mg/100ml Ns) 100 mls @ 100 mls/hr IVPB Q8 [facility] Stop: 08/10/17 09:59 Last Admin: 08/09/17 16:06 Dose: 100 mls/hr Lactulose (Enulose) 10 gm PO DAILY PRN PRN Reason: Constipation Metoclopramide HCl (Reglan) 10 mg IVP Q6 PRN PRN Reason: Nausea/Vomiting Valsartan (Diovan) 320 mg PO DAILY [facility] Last Admin: 08/09/17 08:21 Dose: 320 mg Ziprasidone (Geodon Cap) 20 mg PO DAILY [facility] Last Admin: 08/09/17 08:25 Dose: 20 mg Ziprasidone (Geodon) 160 mg PO HS [facility] Last Admin: 08/08/17 21:11 Dose: 160 mg - Labs Labs: 08/09/17 05:30 08/09/17 05:30 PT 13.6 Seconds (9.8-13.1) H 08/04/17 11:00 INR 1.3 (0.9-1.2) H 08/04/17 11:00 APTT 32.9 Seconds (25.6-37.1) 08/04/17 11:00 Attending/Attestation - Attestation I have fully participated in the care of the patient.: Yes I have reviewed all pertinent clinical information, including history, physical exam and plan: Yes Notes (Text): 08/09/17 20:54 Pt is improving clinically C/w IV antibiotics OOB to walk
[2017-08-07] MEDS: Piperacillin/Tazobact 3.375 GM in Sodium Chloride 0.9% 100 ML IVPB SCH ×2 (09:13→21:21)
[2017-08-07] MEDS ORDERED: Lactulose 10 gm/15 ml Syrup PO PRN (10:44)
--- NOTE | 2017-08-07 12:28 | CP.PCM.PN ---
Subjective - Date & Time of Evaluation Date of Evaluation: 08/07/17 Time of Evaluation: 12:26 - Subjective Subjective: POD#3. Pt seen and examined at bedside this morning with attending. No acute events overnight. Afebrile. Lying in bed comfortably, NAD. Tolerating PO intake without difficulty. Pt reports overall feeling better. Objective - Vital Signs/Intake and Output Vital Signs (last 24 hours): Temp Pulse Resp BP Pulse Ox 98.6 F 76 18 113/70 96 08/07/17 12:00 08/07/17 12:00 08/07/17 12:00 08/07/17 12:00 08/07/17 12:00 Intake and Output: 08/07/17 08/07/17 06:59 18:59 Intake Total 500 Output Total 820 Balance -320 - Medications Medications: Current Medications Acetaminophen (Tylenol 325mg Tab) 650 mg PO Q6 PRN PRN Reason: Fever >100.4 F Amlodipine Besylate (Norvasc) 10 mg PO DAILY [facility] Last Admin: 08/07/17 09:11 Dose: 10 mg Citalopram Hydrobromide (Celexa) 20 mg PO DAILY [facility] Last Admin: 08/07/17 09:11 Dose: 20 mg Docusate Sodium (Colace) 100 mg PO DAILY PRN PRN Reason: constipation Famotidine (Pepcid) 20 mg PO BID [facility] Last Admin: 08/07/17 09:13 Dose: 20 mg Hydrochlorothiazide (Hydrodiuril) 25 mg PO DAILY [facility] Last Admin: 08/07/17 09:11 Dose: 25 mg Meropenem 1 gm/ Sodium (Chloride) 100 mls @ 100 mls/hr IVPB Q8 [facility] Lactulose (Enulose) 10 gm PO DAILY PRN PRN Reason: Constipation Metoclopramide HCl (Reglan) 10 mg IVP Q6 PRN PRN Reason: Nausea/Vomiting Oxycodone/Acetaminophen (Percocet 5/325 Mg Tab) 1 tab PO Q6 PRN PRN Reason: Pain, moderate (4-7) Stop: 08/07/17 20:04 Last Admin: 08/07/17 04:31 Dose: 1 tab Oxycodone/Acetaminophen (Percocet 5/325 Mg Tab) 2 tab PO Q6 PRN PRN Reason: Pain, severe (8-10) Stop: 08/08/17 07:37 Last Admin: 08/06/17 08:19 Dose: 2 tab Valsartan (Diovan) 320 mg PO DAILY [facility] Last Admin: 08/07/17 09:11 Dose: 320 mg Ziprasidone (Geodon Cap) 20 mg PO DAILY [facility] Last Admin: 08/07/17 09:11 Dose: 20 mg Ziprasidone (Geodon) 160 mg PO HS [facility] Last Admin: 08/06/17 21:21 Dose: 160 mg - Labs Labs: 08/07/17 04:15 08/07/17 04:15 PT 13.6 Seconds (9.8-13.1) H 08/04/17 11:00 INR 1.3 (0.9-1.2) H 08/04/17 11:00 APTT 32.9 Seconds (25.6-37.1) 08/04/17 11:00 - Constitutional Appears: Non-toxic, No Acute Distress - Head Exam Head Exam: ATRAUMATIC - Eye Exam Eye Exam: EOMI. absent: Conjunctival injection, Scleral icterus Pupil Exam: PERRL - ENT Exam ENT Exam: Mucous Membranes Moist - Neck Exam Neck Exam: Full ROM. absent: Lymphadenopathy - Respiratory Exam Respiratory Exam: Clear to Ausculation Bilateral, NORMAL BREATHING PATTERN. absent: Rales, Rhonchi, Wheezes - Cardiovascular Exam Cardiovascular Exam: REGULAR RHYTHM, RRR, +S1, +S2. absent: JVD, Rubs - GI/Abdominal Exam GI & Abdominal Exam: Soft, Tenderness (RUQ, improving), Normal Bowel Sounds. absent: Distended, Firm, Guarding, Rigid - Extremities Exam Extremities Exam: Normal Inspection. absent: Pedal Edema - Neurological Exam Neurological Exam: Alert, Awake, CN II-XII Intact, Oriented x3 - Psychiatric Exam Psychiatric exam: Normal Affect, Normal Mood - Skin Skin Exam: Dry, Intact Assessment and Plan (1) Acute cholecystitis Assessment & Plan: POD#3 Drains to remain in place WBC improving (15.0) today IV Abx switched to Meropenem as per Surgery team ID consult as per surgery team will continue to monitor WBCs/vitals Status: Acute (2) Essential (primary) hypertension Assessment & Plan: c/w home medications Status: Chronic (3) Prophylactic measure Assessment & Plan: as ordered Status: Acute
--- NOTE | 2017-08-07 13:04 | CP.PCM.CON ---
History of Present Illness - History of Present Illness History of Present Illness: Infectious Disease Consult Note- asked to see this patient at the request of Gary HOLLINGSWORTH for leukocytosis and help with abx management, HPI- Pt. is a 52 year old amle with pmh of HTN, DM II, cholelithiasis, who was admitted with c/o RUQ abdominal pain and nausea and was found to have necrotizing cholecystitis and is s/p endoscopic cholecystectomy adn sattes he feels much betetr overall . I'm asked to see him to help with abx management since he has leukocytosis. pt. denies any fever or chills and denies any nausea and states he is tolerating regular diet now. HAs drain in place since post surgery. PMHx: Mental illness, HTN, Diabetes, choleltithiasis. PSH: none ALL: NKDA SocialHx: chronic smoker at least 1ppd for many years. Review of Systems - Review of Systems Review of Systems: ROS- denies any fever or chills, denies any ZAYAS, denies any cough, denies any sob, denies any chest pain, states his RUQ abdominal pain has resolved post surgery, denies any nausea or vomiting anymore but had it on admission denies any diarrhea denies any dysurea Past Patient History - Infectious Disease Hx of Infectious Diseases: None - Past Medical History & Family History Past Medical History?: Yes - Past Social History Alcohol: None Drugs: Denies Home Situation {Lives}: With Family - CARDIAC Hx Hypertension: Yes - ENDOCRINE/METABOLIC Hx Endocrine Disorders: Yes Hx Diabetes Mellitus Type 2: Yes - MUSCULOSKELETAL/RHEUMATOLOGICAL Hx Falls: No - PSYCHIATRIC Hx Depression: Yes - SURGICAL HISTORY Hx Surgeries: No - ANESTHESIA Hx Anesthesia: No Meds Allergies/Adverse Reactions: Allergies Allergy/AdvReac Type Severity Reaction Status Date / Time No Known Allergies Allergy Verified 02/01/17 13:00 - Medications Medications: Current Medications Acetaminophen (Tylenol 325mg Tab) 650 mg PO Q6 PRN PRN Reason: Fever >100.4 F Amlodipine Besylate (Norvasc) 10 mg PO DAILY [facility] Last Admin: 08/07/17 09:11 Dose: 10 mg Citalopram Hydrobromide (Celexa) 20 mg PO DAILY [facility] Last Admin: 08/07/17 09:11 Dose: 20 mg Docusate Sodium (Colace) 100 mg PO DAILY PRN PRN Reason: constipation Famotidine (Pepcid) 20 mg PO BID [facility] Last Admin: 08/07/17 09:13 Dose: 20 mg Hydrochlorothiazide (Hydrodiuril) 25 mg PO DAILY [facility] Last Admin: 08/07/17 09:11 Dose: 25 mg Meropenem 1 gm/ Sodium (Chloride) 100 mls @ 100 mls/hr IVPB Q8 [facility] Lactulose (Enulose) 10 gm PO DAILY PRN PRN Reason: Constipation Metoclopramide HCl (Reglan) 10 mg IVP Q6 PRN PRN Reason: Nausea/Vomiting Oxycodone/Acetaminophen (Percocet 5/325 Mg Tab) 1 tab PO Q6 PRN PRN Reason: Pain, moderate (4-7) Stop: 08/07/17 20:04 Last Admin: 08/07/17 04:31 Dose: 1 tab Oxycodone/Acetaminophen (Percocet 5/325 Mg Tab) 2 tab PO Q6 PRN PRN Reason: Pain, severe (8-10) Stop: 08/08/17 07:37 Last Admin: 08/06/17 08:19 Dose: 2 tab Valsartan (Diovan) 320 mg PO DAILY [facility] Last Admin: 08/07/17 09:11 Dose: 320 mg Ziprasidone (Geodon Cap) 20 mg PO DAILY [facility] Last Admin: 08/07/17 09:11 Dose: 20 mg Ziprasidone (Geodon) 160 mg PO HS [facility] Last Admin: 08/06/17 21:21 Dose: 160 mg Physical Exam - Constitutional Appears: No Acute Distress - Head Exam Head Exam: ATRAUMATIC - Eye Exam Eye Exam: EOMI - ENT Exam ENT Exam: Normal Oropharynx - Respiratory Exam Respiratory Exam: Clear to Auscultation Bilateral, NORMAL BREATHING PATTERN - Cardiovascular Exam Cardiovascular Exam: RRR, +S1, +S2 - GI/Abdominal Exam GI & Abdominal Exam: Normal Bowel Sounds, Soft Additional comments: no distention has right drain in place draining sanguinous fluid but minimal no guarding, no rebound - Extremities Exam Extremities exam: Positive for: normal inspection - Neurological Exam Neurological exam: Alert, Oriented x3 Results - Vital Signs Recent Vital Signs: Last Vital Signs Temp 98.6 F 08/07/17 12:00 Pulse 76 08/07/17 12:00 Resp 18 08/07/17 12:00 BP 113/70 08/07/17 12:00 Pulse Ox 96 08/07/17 12:00 - Labs Result Diagrams: 08/07/17 04:15 08/07/17 04:15 Labs: Laboratory Results - last 24 hr 08/07/17 08/07/17 04:15 04:15 WBC 15.0 H RBC 3.92 L Hgb 11.9 L Hct 35.7 MCV 91.1 MCH 30.3 MCHC 33.2 RDW 13.2 Plt Count 254 Sodium 141 Potassium 3.9 Chloride 105 Carbon Dioxide 24 Anion Gap 15 BUN 11 Creatinine 1.1 Est GFR ( Amer) > 60 Est GFR (Non-Af Amer) > 60 Random Glucose 89 Calcium 8.9 Laboratory Results - last 72 hr 08/04/17 08/05/17 08/05/17 19:57 05:50 05:50 WBC 20.0 H RBC 4.02 L Hgb 12.1 Hct 36.6 MCV 91.0 MCH 30.1 MCHC 33.1 RDW 13.2 Plt Count 230 MPV 8.9 Neut % (Auto) 73.3 Lymph % (Auto) 14.5 L Hayes % (Auto) 11.0 H Eos % (Auto) 0.5 Baso % (Auto) 0.7 Neut # 14.7 H Lymph # 2.9 Hayes # 2.2 H Eos # 0.1 Baso # 0.1 Sodium 139 Potassium 3.7 Chloride 102 Carbon Dioxide 25 Anion Gap 16 BUN 14 Creatinine 1.1 Est GFR ( Amer) > 60 Est GFR (Non-Af Amer) > 60 POC Glucose (mg/dL) 138 H Random Glucose 86 Calcium 8.3 L Total Bilirubin 0.8 AST 54 ALT 55 Alkaline Phosphatase 60 Total Protein 6.7 Albumin 3.3 L Globulin 3.4 Albumin/Globulin Ratio 1.0 08/06/17 08/06/17 08/07/17 05:40 05:40 04:15 WBC 15.3 H 15.0 H RBC 3.78 L 3.92 L Hgb 11.4 L 11.9 L Hct 34.5 L 35.7 MCV 91.2 91.1 MCH 30.1 30.3 MCHC 33.0 33.2 RDW 13.6 13.2 Plt Count 228 254 MPV 9.0 Neut % (Auto) 67.8 Lymph % (Auto) 15.7 L Hayes % (Auto) 13.0 H Eos % (Auto) 3.0 Baso % (Auto) 0.5 Neut # 10.4 H Lymph # 2.4 Hayes # 2.0 H Eos # 0.5 Baso # 0.1 Sodium 142 Potassium 4.0 Chloride 106 Carbon Dioxide 24 Anion Gap 16 BUN 12 Creatinine 0.9 Est GFR ( Amer) > 60 Est GFR (Non-Af Amer) > 60 POC Glucose (mg/dL) Random Glucose 89 Calcium 8.2 L Total Bilirubin 0.5 AST 39 ALT 53 Alkaline Phosphatase 56 Total Protein 6.6 Albumin 3.2 L Globulin 3.4 Albumin/Globulin Ratio 0.9 L 08/07/17 04:15 WBC RBC Hgb Hct MCV MCH MCHC RDW Plt Count MPV Neut % (Auto) Lymph % (Auto) Hayes % (Auto) Eos % (Auto) Baso % (Auto) Neut # Lymph # Hayes # Eos # Baso # Sodium 141 Potassium 3.9 Chloride 105 Carbon Dioxide 24 Anion Gap 15 BUN 11 Creatinine 1.1 Est GFR ( Amer) > 60 Est GFR (Non-Af Amer) > 60 POC Glucose (mg/dL) Random Glucose 89 Calcium 8.9 Total Bilirubin AST ALT Alkaline Phosphatase Total Protein Albumin Globulin Albumin/Globulin Ratio Microbiology 08/03/17 08:45 Blood-Venous Blood Culture - Preliminary NO GROWTH AFTER 4 DAYS 08/03/17 08:30 Blood-Venous Blood Culture - Preliminary NO GROWTH AFTER 4 DAYS 08/03/17 11:44 Urine Urine Culture - Final No Growth (<1,000 CFU/ML) Accession No. : [id number] Patient Name / ID : DAFNE DOMINGUEZ / [id number] Exam Date : 08/03/2017 08:21:33 ( Approved ) Study Comment : Sex / Age : M / 52Y Creator : Malini GRANDE MD Dictator : Malini GRANDE MD Extractor Filler : Certified Home Health Aide : Malini GRANDE MD Approver2 : Report Date : 08/03/2017 10:07:04 My Comment : HISTORY: COMPARISON: 01/09/2013. TECHNIQUE: Chest PA and lateral FINDINGS: LINES AND TUBES: None. LUNG AND PLEURA: The lungs are hyperinflated and there is peribronchial thickening with chronic changes in both lungs. No focal consolidation. HEART AND MEDIASTINUM: The heart is not enlarged. The hilar and mediastinal contours are within normal limits. SKELETAL STRUCTURES: The bony structures are within normal limits for the patient's age. VISUALIZED UPPER ABDOMEN: Normal. OTHER FINDINGS: None. IMPRESSION: No active pulmonary disease. COPD. Accession No. : [id number] Patient Name / ID : DAFNE DOMINGUEZ / [id number] Exam Date : 08/03/2017 09:15:00 ( Approved ) Study Comment : Sex / Age : M / 52Y Creator : Lalit Malone MD Dictator : Lalit Malone MD Extractor Filler : Certified Home Health Aide : Lalit Malone MD Approver2 : Report Date : 08/04/2017 15:16:51 My Comment : PROCEDURE: Nuclear Medicine Hepatobiliary Scan HISTORY: rule out cholecystitis COMPARISON: August 03, 2017. Abdominal ultrasound TECHNIQUE: 5.3 mCi of technetium 99m Mebrofenin was administered intravenously. Planar images of the abdomen were obtained at 5 min intervals to 60 mins. Delayed images were also obtained. FINDINGS: LIVER: Timely and mildly heterogeneous uptake. COMMON BILE DUCT: identified at 10 mins. GALLBLADDER: Not identified at 60 mins. SMALL BOWEL: Identified at 15 mins. IMPRESSION: Abnormal Hepatobiliary Scan. The cystic duct is occluded, presumptive evidence for acute cholecystitis. Images obtained over 60 minutes. Delayed imaging were not obtained based on the absence of radionuclide within the gallbladder at the conclusion of the study, 1 hour. Assessment & Plan (1) Acute cholecystitis Status: Acute (2) Biliary colic Status: Acute (3) Leukocytosis Status: Acute - Assessment and Plan (Free Text) Assessment: A/P- 52 year old male with DM II, was admitted with RUQ pain and nausea found to have acute cholecystitis s/p cholecystectomy and is clinically doing better. pt. afebrile leukocytosis has been trending down on the IV zosyn that pt. was on . does not have left shift and the residual leukocytosis most likely reactive/ inflamamtory. blood cx- neg x 2 UA - neg plan- no need for IV meropenm as pt. has clinically improved on IV zosyn. would advise to place back on IV zosyn. if patient spikes temp would then advise to check repeat cultures and would consider changing abx at that time. also pt. to use incentive spirometry . also would need to ascertain length of time REINA drain will remain in place. Thank you for allowing me to take part in the care of this patient. will f/u .
[2017-08-07] MEDS ORDERED: Meropenem 1 GM in Sodium Chloride 0.9% 100 ML IVPB SCH (17:00)
[2017-08-08] MEDS: Piperacillin/Tazobact 3.375 GM in Sodium Chloride 0.9% 100 ML IVPB SCH ×4 (04:44→21:10)
[2017-08-08 07:09] LABS: HEMATOCRIT 38.4 % (35.0-51.0); MEAN CELL VOLUME 90.7 fl (80.0-94.0); MEAN CORPUSCULAR HEMOGLOBIN 31.1 pg (27.0-31.0); MEAN CORPUSCULAR HGB CONC 34.3 g/dL (33.0-37.0); RED CELL DISTRIBUTION WIDTH 13.4 % (11.5-14.5); WHITE BLOOD COUNT 17.5 K/uL (4.8-10.8)
--- NOTE | 2017-08-08 14:40 | CP.PCM.PN ---
<Fortunato Bar - Last Filed: 08/08/17 14:40> Subjective - Date & Time of Evaluation Date of Evaluation: 08/08/17 Time of Evaluation: 06:45 - Subjective Subjective: General Surgery- Dr. Leiva Pt S&E at bedside this AM. No acute events overnight. Pt Tolerating diet. no pain. passing flatus, regular BM. Denies F/C CP/SOB N/V/D. Ortiz 5cc serous fluid. Objective - Vital Signs/Intake and Output Vital Signs (last 24 hours): Temp Pulse Resp BP Pulse Ox 98.8 F 74 18 111/72 98 08/08/17 12:06 08/08/17 12:06 08/08/17 12:06 08/08/17 12:06 08/08/17 12:06 Intake and Output: 08/08/17 08/08/17 06:59 18:59 Intake Total 200 Output Total 10 Balance 190 - Medications Medications: Current Medications Acetaminophen (Tylenol 325mg Tab) 650 mg PO Q6 PRN PRN Reason: Fever >100.4 F Amlodipine Besylate (Norvasc) 10 mg PO DAILY [facility] Last Admin: 08/08/17 08:13 Dose: 10 mg Citalopram Hydrobromide (Celexa) 20 mg PO DAILY [facility] Last Admin: 08/08/17 08:12 Dose: 20 mg Docusate Sodium (Colace) 100 mg PO DAILY PRN PRN Reason: constipation Famotidine (Pepcid) 20 mg PO BID [facility] Last Admin: 08/08/17 08:14 Dose: 20 mg Hydrochlorothiazide (Hydrodiuril) 25 mg PO DAILY [facility] Last Admin: 08/08/17 08:13 Dose: 25 mg Piperacillin Sod/Tazobactam (Sod 3.375 gm/ Sodium Chloride) 100 mls @ 100 mls/ hr IVPB Q6 [facility] Last Admin: 08/08/17 09:21 Dose: 100 mls/hr Lactulose (Enulose) 10 gm PO DAILY PRN PRN Reason: Constipation Metoclopramide HCl (Reglan) 10 mg IVP Q6 PRN PRN Reason: Nausea/Vomiting Valsartan (Diovan) 320 mg PO DAILY [facility] Last Admin: 08/08/17 08:12 Dose: 320 mg Ziprasidone (Geodon Cap) 20 mg PO DAILY [facility] Last Admin: 08/08/17 08:18 Dose: 20 mg Ziprasidone (Geodon) 160 mg PO HS [facility] Last Admin: 08/07/17 21:23 Dose: 160 mg - Labs Labs: 08/08/17 06:00 08/07/17 04:15 PT 13.6 Seconds (9.8-13.1) H 08/04/17 11:00 INR 1.3 (0.9-1.2) H 08/04/17 11:00 APTT 32.9 Seconds (25.6-37.1) 08/04/17 11:00 - Constitutional Appears: Non-toxic, No Acute Distress - Head Exam Head Exam: ATRAUMATIC - Eye Exam Eye Exam: EOMI. absent: Scleral icterus - ENT Exam ENT Exam: Mucous Membranes Moist - Respiratory Exam Respiratory Exam: NORMAL BREATHING PATTERN. absent: Accessory Muscle Use, Respiratory Distress - GI/Abdominal Exam GI & Abdominal Exam: Soft, Normal Bowel Sounds. absent: Distended, Firm, Guarding, Rigid, Tenderness Additional comments: Serous drainage from Ortiz - Extremities Exam Extremities Exam: Normal Inspection - Back Exam Back Exam: NORMAL INSPECTION - Neurological Exam Neurological Exam: Alert, Awake, Oriented x3 - Psychiatric Exam Psychiatric exam: Normal Affect, Normal Mood - Skin Skin Exam: Dry, Normal Color, Warm Assessment and Plan - Assessment and Plan (Free Text) Assessment: 52M s/p laparoscopic cholecystectomy and lysis of adhesion POD#4 Plan: - trend CBC - Abx ID recs- Full dose Zosyn - HHD - Monitor drain output - DVT/GI ppx - further recs per Dr. Cali Bar PGY1 <Richard Leiva B - Last Filed: 08/09/17 20:56> Objective - Vital Signs/Intake and Output Vital Signs (last 24 hours): Temp Pulse Resp BP Pulse Ox 98.3 F 77 18 109/72 97 08/09/17 20:15 08/09/17 20:15 08/09/17 20:15 08/09/17 20:15 08/09/17 20:15 - Medications Medications: Current Medications Acetaminophen (Tylenol 325mg Tab) 650 mg PO Q6 PRN PRN Reason: Fever >100.4 F Amlodipine Besylate (Norvasc) 10 mg PO DAILY [facility] Last Admin: 08/09/17 08:24 Dose: 10 mg Citalopram Hydrobromide (Celexa) 20 mg PO DAILY [facility] Last Admin: 08/09/17 08:25 Dose: 20 mg Docusate Sodium (Colace) 100 mg PO DAILY PRN PRN Reason: constipation Famotidine (Pepcid) 20 mg PO BID [facility] Last Admin: 08/09/17 16:03 Dose: 20 mg Hydrochlorothiazide (Hydrodiuril) 25 mg PO DAILY [facility] Last Admin: 08/09/17 08:22 Dose: 25 mg Piperacillin Sod/Tazobactam (Sod 3.375 gm/ Sodium Chloride) 100 mls @ 100 mls/ hr IVPB Q6 [facility] Last Admin: 08/09/17 16:02 Dose: 100 mls/hr Metronidazole (Flagyl 500mg/100ml Ns) 100 mls @ 100 mls/hr IVPB Q8 [facility] Stop: 08/10/17 09:59 Last Admin: 08/09/17 16:06 Dose: 100 mls/hr Lactulose (Enulose) 10 gm PO DAILY PRN PRN Reason: Constipation Metoclopramide HCl (Reglan) 10 mg IVP Q6 PRN PRN Reason: Nausea/Vomiting Valsartan (Diovan) 320 mg PO DAILY [facility] Last Admin: 08/09/17 08:21 Dose: 320 mg Ziprasidone (Geodon Cap) 20 mg PO DAILY [facility] Last Admin: 08/09/17 08:25 Dose: 20 mg Ziprasidone (Geodon) 160 mg PO HS [facility] Last Admin: 08/08/17 21:11 Dose: 160 mg - Labs Labs: 08/09/17 05:30 08/09/17 05:30 PT 13.6 Seconds (9.8-13.1) H 08/04/17 11:00 INR 1.3 (0.9-1.2) H 08/04/17 11:00 APTT 32.9 Seconds (25.6-37.1) 08/04/17 11:00 Attending/Attestation - Attestation I have fully participated in the care of the patient.: Yes I have reviewed all pertinent clinical information, including history, physical exam and plan: Yes Notes (Text): 08/09/17 20:55 Pt is improving clinically Change antibiotics to Meropenam ID consult [email or web address]
--- NOTE | 2017-08-08 14:59 | CP.PCM.PN ---
Subjective - Date & Time of Evaluation Date of Evaluation: 08/08/17 Time of Evaluation: 14:59 - Subjective Subjective: ID Note- pt. seen and examined today. denies any fever or chills. denies any nausea. eating well. Objective - Vital Signs/Intake and Output Vital Signs (last 24 hours): Temp Pulse Resp BP Pulse Ox 98.8 F 74 18 111/72 98 08/08/17 12:06 08/08/17 12:06 08/08/17 12:06 08/08/17 12:06 08/08/17 12:06 Intake and Output: 08/08/17 08/08/17 06:59 18:59 Intake Total 200 Output Total 10 Balance 190 - Medications Medications: Current Medications Acetaminophen (Tylenol 325mg Tab) 650 mg PO Q6 PRN PRN Reason: Fever >100.4 F Amlodipine Besylate (Norvasc) 10 mg PO DAILY [facility] Last Admin: 08/08/17 08:13 Dose: 10 mg Citalopram Hydrobromide (Celexa) 20 mg PO DAILY [facility] Last Admin: 08/08/17 08:12 Dose: 20 mg Docusate Sodium (Colace) 100 mg PO DAILY PRN PRN Reason: constipation Famotidine (Pepcid) 20 mg PO BID [facility] Last Admin: 08/08/17 08:14 Dose: 20 mg Hydrochlorothiazide (Hydrodiuril) 25 mg PO DAILY [facility] Last Admin: 08/08/17 08:13 Dose: 25 mg Piperacillin Sod/Tazobactam (Sod 3.375 gm/ Sodium Chloride) 100 mls @ 100 mls/ hr IVPB Q6 [facility] Last Admin: 08/08/17 09:21 Dose: 100 mls/hr Lactulose (Enulose) 10 gm PO DAILY PRN PRN Reason: Constipation Metoclopramide HCl (Reglan) 10 mg IVP Q6 PRN PRN Reason: Nausea/Vomiting Valsartan (Diovan) 320 mg PO DAILY [facility] Last Admin: 08/08/17 08:12 Dose: 320 mg Ziprasidone (Geodon Cap) 20 mg PO DAILY [facility] Last Admin: 08/08/17 08:18 Dose: 20 mg Ziprasidone (Geodon) 160 mg PO HS [facility] Last Admin: 08/07/17 21:23 Dose: 160 mg - Labs Labs: - Additional Findings Additional findings: - Constitutional Appears: No Acute Distress - Head Exam Head Exam: ATRAUMATIC - Eye Exam Eye Exam: EOMI - ENT Exam ENT Exam: Normal Oropharynx - Respiratory Exam Respiratory Exam: Clear to Auscultation Bilateral, NORMAL BREATHING PATTERN - Cardiovascular Exam Cardiovascular Exam: RRR, +S1, +S2 - GI/Abdominal Exam GI & Abdominal Exam: Normal Bowel Sounds, Soft Additional comments: no distention has right drain in place draining sanguinous fluid but minimal no guarding, no rebound - Extremities Exam Extremities exam: Positive for: normal inspection - Neurological Exam Neurological exam: Alert, Oriented x 3 Laboratory Results - last 72 hr 08/06/17 08/06/17 08/07/17 05:40 05:40 04:15 WBC 15.3 H 15.0 H RBC 3.78 L 3.92 L Hgb 11.4 L 11.9 L Hct 34.5 L 35.7 MCV 91.2 91.1 MCH 30.1 30.3 MCHC 33.0 33.2 RDW 13.6 13.2 Plt Count 228 254 MPV 9.0 Neut % (Auto) 67.8 Lymph % (Auto) 15.7 L [place] % (Auto) 13.0 H Eos % (Auto) 3.0 Baso % (Auto) 0.5 Neut # 10.4 H Lymph # 2.4 [place] # 2.0 H Eos # 0.5 Baso # 0.1 Sodium 142 Potassium 4.0 Chloride 106 Carbon Dioxide 24 Anion Gap 16 BUN 12 Creatinine 0.9 Est GFR ( Amer) > 60 Est GFR (Non-Af Amer) > 60 Random Glucose 89 Calcium 8.2 L Total Bilirubin 0.5 AST 39 ALT 53 Alkaline Phosphatase 56 Total Protein 6.6 Albumin 3.2 L Globulin 3.4 Albumin/Globulin Ratio 0.9 L 08/07/17 08/08/17 04:15 06:00 WBC 17.5 H RBC 4.23 L Hgb 13.1 Hct 38.4 MCV 90.7 MCH 31.1 H MCHC 34.3 RDW 13.4 Plt Count 324 MPV Neut % (Auto) Lymph % (Auto) [place] % (Auto) Eos % (Auto) Baso % (Auto) Neut # Lymph # [place] # Eos # Baso # Sodium 141 Potassium 3.9 Chloride 105 Carbon Dioxide 24 Anion Gap 15 BUN 11 Creatinine 1.1 Est GFR ( Amer) > 60 Est GFR (Non-Af Amer) > 60 Random Glucose 89 Calcium 8.9 Total Bilirubin AST ALT Alkaline Phosphatase Total Protein Albumin Globulin Albumin/Globulin Ratio Microbiology 08/03/17 08:45 Blood-Venous Blood Culture - Final NO GROWTH AFTER 5 DAYS 08/03/17 08:45 Blood-Venous Gram Stain - Final TEST NOT PERFORMED 08/03/17 08:30 Blood-Venous Blood Culture - Final NO GROWTH AFTER 5 DAYS 08/03/17 08:30 Blood-Venous Gram Stain - Final TEST NOT PERFORMED 08/03/17 11:44 Urine Urine Culture - Final No Growth (<1,000 CFU/ML) Assessment and Plan (1) Acute cholecystitis Status: Acute (2) Biliary colic Status: Acute (3) Leukocytosis Status: Acute - Assessment and Plan (Free Text) Assessment: A/P- 52 year old male with DM II, was admitted with RUQ pain and nausea found to have acute cholecystitis s/p cholecystectomy and is clinically doing better. pt. has remained leukocytosis present but no left shift and could be inflamamtory/reactive in nature. blood cx- neg x 2 UA - neg plan- pt. now on full dose IV zosyn , was on low dose before. would advise to continue with full dose Zosyn for now. add IV flagyl for extra anerobic coverage. if patient spikes temp would then advise to check repeat cultures and would consider changing abx at that time. advise to also check cxr . also pt. to use incentive spirometry . also would need to ascertain length of time REINA drain will remain in place. also if wbc rises would need abd/pelvic CT to make sure there is no fluid collection . 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
[2017-08-08] MEDS: metroNIDAZOLE 500mg/100ml NS 100 ML IVPB SCH (16:42)
--- NOTE | 2017-08-08 18:05 | PN ---
DATE: 08/08/2017 SUBJECTIVE: The patient is seen and examined. Interim events noted. Consults noted and appreciated. Infectious Disease followup and intervention noted and appreciated. The patient remains in progressive care unit, on telemetry monitoring. The patient feels okay. Denies any specific complaint of chest pain or shortness of breath. Complains of little sensitivity in abdomen, also tolerating food and passing bowel movement. No vomiting or nausea. PHYSICAL EXAMINATION GENERAL: The patient is in no acute distress. VITAL SIGNS: Stable. HEART: S1, S2, normal and regular. LUNGS: Good bilateral air exchange. ABDOMEN: Soft and nontender. No organomegaly. No fluids. Bowel sounds are present. REINA tube is in good position and functioning. No signs of acute complications. EXTREMITIES: No edema. No calf swelling. No tenderness. No acute ischemia. DIORAMA MODEL [employer]KER: Essentially unchanged. DIAGNOSTIC DATA: Available diagnostic data reviewed. IMPRESSION: Overall, the patient's general medical condition is stable. PLAN: As ordered. North Nicholson MD
[2017-08-09] MEDS: metroNIDAZOLE 500mg/100ml NS 100 ML IVPB SCH ×3 (00:12→16:06)
[2017-08-09] MEDS: Piperacillin/Tazobact 3.375 GM in Sodium Chloride 0.9% 100 ML IVPB SCH ×4 (04:28→21:04)
[2017-08-09 06:55] LABS: HEMATOCRIT 37.7 % (35.0-51.0); MEAN CELL VOLUME 90.9 fl (80.0-94.0); MEAN CORPUSCULAR HEMOGLOBIN 29.8 pg (27.0-31.0); MEAN CORPUSCULAR HGB CONC 32.8 g/dL (33.0-37.0); RED CELL DISTRIBUTION WIDTH 13.3 % (11.5-14.5); WHITE BLOOD COUNT 16.8 K/uL (4.8-10.8)
[2017-08-09 07:04] LABS: ALB/GLOB RATIO 0.9 (1.0-2.1); ALKALINE PHOSPHATASE 83 U/L (38-126); ALT/SGPT 46 U/L (21-72); AST/SGOT 39 U/L (17-59); BILIRUBIN,TOTAL 0.6 mg/dl (0.2-1.3); BLOOD UREA NITROGEN 18 mg/dl (9-20); CALCIUM 9.3 mg/dL (8.4-10.2); CARBON DIOXIDE 22 mmol/L (22-30); CHLORIDE 104 mmol/L (98-107); GFR AFRICAN-AMERICAN > 60; GLUCOSE,RANDOM 94 mg/dL (75-110); SODIUM 143 mmol/l (132-148); TOTAL PROTEIN 7.6 G/DL (6.3-8.2)
--- NOTE | 2017-08-09 10:28 | CP.PCM.PN ---
<Fortunato Bar - Last Filed: 08/09/17 10:29> Subjective - Date & Time of Evaluation Date of Evaluation: 08/09/17 Time of Evaluation: 10:00 - Subjective Subjective: General Surgery- Dr. Leiva Pt S&E at bedside this AM. No acute events overnight. Pt tolerating diet, no pain, +OOB, +flauts, +BM. Denies F/C CP/SOB N/V/D Ortiz 5cc serous fluid Objective - Vital Signs/Intake and Output Vital Signs (last 24 hours): Temp Pulse Resp BP Pulse Ox 98.5 F 74 18 103/68 93 L 08/09/17 04:42 08/09/17 08:24 08/09/17 04:42 08/09/17 08:24 08/09/17 04:42 Intake and Output: 08/09/17 08/09/17 06:59 18:59 Output Total 0 Balance 0 - Medications Medications: Current Medications Acetaminophen (Tylenol 325mg Tab) 650 mg PO Q6 PRN PRN Reason: Fever >100.4 F Amlodipine Besylate (Norvasc) 10 mg PO DAILY [facility] Last Admin: 08/09/17 08:24 Dose: 10 mg Citalopram Hydrobromide (Celexa) 20 mg PO DAILY [facility] Last Admin: 08/09/17 08:25 Dose: 20 mg Docusate Sodium (Colace) 100 mg PO DAILY PRN PRN Reason: constipation Famotidine (Pepcid) 20 mg PO BID [facility] Last Admin: 08/09/17 08:25 Dose: 20 mg Hydrochlorothiazide (Hydrodiuril) 25 mg PO DAILY [facility] Last Admin: 08/09/17 08:22 Dose: 25 mg Piperacillin Sod/Tazobactam (Sod 3.375 gm/ Sodium Chloride) 100 mls @ 100 mls/ hr IVPB Q6 [facility] Last Admin: 08/09/17 09:02 Dose: 100 mls/hr Metronidazole (Flagyl 500mg/100ml Ns) 100 mls @ 100 mls/hr IVPB Q8 [facility] Stop: 08/10/17 09:59 Last Admin: 08/09/17 08:26 Dose: 100 mls/hr Lactulose (Enulose) 10 gm PO DAILY PRN PRN Reason: Constipation Metoclopramide HCl (Reglan) 10 mg IVP Q6 PRN PRN Reason: Nausea/Vomiting Valsartan (Diovan) 320 mg PO DAILY [facility] Last Admin: 08/09/17 08:21 Dose: 320 mg Ziprasidone (Geodon Cap) 20 mg PO DAILY [facility] Last Admin: 08/09/17 08:25 Dose: 20 mg Ziprasidone (Geodon) 160 mg PO HS [facility] Last Admin: 08/08/17 21:11 Dose: 160 mg - Labs Labs: 08/09/17 05:30 08/09/17 05:30 PT 13.6 Seconds (9.8-13.1) H 08/04/17 11:00 INR 1.3 (0.9-1.2) H 08/04/17 11:00 APTT 32.9 Seconds (25.6-37.1) 08/04/17 11:00 - Constitutional Appears: Non-toxic, No Acute Distress - Head Exam Head Exam: ATRAUMATIC - Eye Exam Eye Exam: EOMI. absent: Scleral icterus - ENT Exam ENT Exam: Mucous Membranes Moist - Respiratory Exam Respiratory Exam: NORMAL BREATHING PATTERN. absent: Accessory Muscle Use, Respiratory Distress - Cardiovascular Exam Cardiovascular Exam: +S1, +S2 - GI/Abdominal Exam GI & Abdominal Exam: Distended, Soft. absent: Firm, Guarding, Rigid, Tenderness - Extremities Exam Extremities Exam: Normal Inspection. absent: Calf Tenderness - Neurological Exam Neurological Exam: Alert, Awake, Oriented x3 - Psychiatric Exam Psychiatric exam: Normal Affect - Skin Skin Exam: Normal Color, Warm Assessment and Plan - Assessment and Plan (Free Text) Assessment: 52M s/p laparoscopic cholecystectomy, lysis of adhesion POD#5 Leukocytosis trending down Plan: - continue regular diet - Trend WBC - IVABx per ID care - monitor drain output - further recs per Dr. Cali Bar PGY1 <Richard Leiva - Last Filed: 08/09/17 20:57> Objective - Vital Signs/Intake and Output Vital Signs (last 24 hours): Temp Pulse Resp BP Pulse Ox 98.3 F 77 18 109/72 97 08/09/17 20:15 08/09/17 20:15 08/09/17 20:15 08/09/17 20:15 08/09/17 20:15 - Medications Medications: Current Medications Acetaminophen (Tylenol 325mg Tab) 650 mg PO Q6 PRN PRN Reason: Fever >100.4 F Amlodipine Besylate (Norvasc) 10 mg PO DAILY [facility] Last Admin: 08/09/17 08:24 Dose: 10 mg Citalopram Hydrobromide (Celexa) 20 mg PO DAILY [facility] Last Admin: 08/09/17 08:25 Dose: 20 mg Docusate Sodium (Colace) 100 mg PO DAILY PRN PRN Reason: constipation Famotidine (Pepcid) 20 mg PO BID [facility] Last Admin: 08/09/17 16:03 Dose: 20 mg Hydrochlorothiazide (Hydrodiuril) 25 mg PO DAILY [facility] Last Admin: 08/09/17 08:22 Dose: 25 mg Piperacillin Sod/Tazobactam (Sod 3.375 gm/ Sodium Chloride) 100 mls @ 100 mls/ hr IVPB Q6 [facility] Last Admin: 08/09/17 16:02 Dose: 100 mls/hr Metronidazole (Flagyl 500mg/100ml Ns) 100 mls @ 100 mls/hr IVPB Q8 [facility] Stop: 08/10/17 09:59 Last Admin: 08/09/17 16:06 Dose: 100 mls/hr Lactulose (Enulose) 10 gm PO DAILY PRN PRN Reason: Constipation Metoclopramide HCl (Reglan) 10 mg IVP Q6 PRN PRN Reason: Nausea/Vomiting Valsartan (Diovan) 320 mg PO DAILY [facility] Last Admin: 08/09/17 08:21 Dose: 320 mg Ziprasidone (Geodon Cap) 20 mg PO DAILY [facility] Last Admin: 08/09/17 08:25 Dose: 20 mg Ziprasidone (Geodon) 160 mg PO HS [facility] Last Admin: 08/08/17 21:11 Dose: 160 mg - Labs Labs: 08/09/17 05:30 08/09/17 05:30 PT 13.6 Seconds (9.8-13.1) H 08/04/17 11:00 INR 1.3 (0.9-1.2) H 08/04/17 11:00 APTT 32.9 Seconds (25.6-37.1) 08/04/17 11:00 Attending/Attestation - Attestation I have fully participated in the care of the patient.: Yes I have reviewed all pertinent clinical information, including history, physical exam and plan: Yes Notes (Text): 08/09/17 20:56 C/w IV antibotics Reg diabetic diet c.w current mx
[2017-08-10] MEDS: metroNIDAZOLE 500mg/100ml NS 100 ML IVPB SCH ×2 (00:19→09:03)
--- NOTE | 2017-08-10 02:22 | PN ---
DATE: 08/09/2017 SUBJECTIVE: The patient is seen and examined. Interim events noted. Consults noted and appreciated. The patient remains in Progressive Care Unit, on telemetry monitoring, tolerating current settings without any problem. The patient is okay. No chest pain. No shortness of breath. The abdominal pain is almost resolved, tolerating diet. PHYSICAL EXAMINATION: GENERAL: The patient is in no acute distress. VITAL SIGNS: Stable. HEART: S1, S2 normal and regular. LUNGS: Good bilateral air exchange. ABDOMEN: Soft, nontender. No sign of acute complications. No guarding. No rigidity. No rebound. Bowel sounds are present and normal. REINA tube is in position without any significant drainage. EXTREMITIES: No edema. No calf swelling. No tenderness. No acute ischemia. CENTRAL NERVOUS SYSTEM: Essentially unchanged. DIAGNOSTIC DATA: Available diagnostic data reviewed. Telemetry monitoring does not show any significant arrhythmias. IMPRESSION: Overall, the patient's general medical condition is stable. PLAN: As ordered. North Nicholson MD
[2017-08-10] MEDS: Piperacillin/Tazobact 3.375 GM in Sodium Chloride 0.9% 100 ML IVPB SCH ×4 (03:11→21:54)
[2017-08-10 05:22] LABS: HEMATOCRIT 35.4 % (35.0-51.0); MEAN CELL VOLUME 90.9 fl (80.0-94.0); MEAN CORPUSCULAR HEMOGLOBIN 29.9 pg (27.0-31.0); MEAN CORPUSCULAR HGB CONC 32.9 g/dL (33.0-37.0); RED CELL DISTRIBUTION WIDTH 13.1 % (11.5-14.5); WHITE BLOOD COUNT 16.6 K/uL (4.8-10.8)
[2017-08-10 05:34] LABS: ALB/GLOB RATIO 0.9 (1.0-2.1); ALKALINE PHOSPHATASE 71 U/L (38-126); ALT/SGPT 38 U/L (21-72); AST/SGOT 25 U/L (17-59); BILIRUBIN,TOTAL 0.4 mg/dl (0.2-1.3); BLOOD UREA NITROGEN 23 mg/dl (9-20); CALCIUM 9.2 mg/dL (8.4-10.2); CARBON DIOXIDE 22 mmol/L (22-30); CHLORIDE 106 mmol/L (98-107); GFR AFRICAN-AMERICAN > 60; GLUCOSE,RANDOM 96 mg/dL (75-110); POTASSIUM 4.3 MMOL/L (3.6-5.0); SODIUM 141 mmol/l (132-148); TOTAL PROTEIN 7.4 G/DL (6.3-8.2)
--- NOTE | 2017-08-10 07:21 | CP.PCM.PN ---
Subjective - Date & Time of Evaluation Date of Evaluation: 08/10/17 Time of Evaluation: 06:30 - Subjective Subjective: Patient seen and examined this AM. NAEO. Patient denies pain, nausea, vomiting, and fevers. Is tolerating diet well. Objective - Vital Signs/Intake and Output Vital Signs (last 24 hours): Temp Pulse Resp BP Pulse Ox 97.8 F 66 18 98/63 L 95 08/10/17 05:00 08/10/17 05:00 08/10/17 05:00 08/10/17 05:00 08/10/17 05:00 Intake and Output: 08/10/17 08/10/17 06:59 18:59 Output Total 10 Balance -10 - Medications Medications: Current Medications Acetaminophen (Tylenol 325mg Tab) 650 mg PO Q6 PRN PRN Reason: Fever >100.4 F Amlodipine Besylate (Norvasc) 10 mg PO DAILY [facility] Last Admin: 08/09/17 08:24 Dose: 10 mg Citalopram Hydrobromide (Celexa) 20 mg PO DAILY [facility] Last Admin: 08/09/17 08:25 Dose: 20 mg Docusate Sodium (Colace) 100 mg PO DAILY PRN PRN Reason: constipation Famotidine (Pepcid) 20 mg PO BID [facility] Last Admin: 08/09/17 16:03 Dose: 20 mg Hydrochlorothiazide (Hydrodiuril) 25 mg PO DAILY [facility] Last Admin: 08/09/17 08:22 Dose: 25 mg Piperacillin Sod/Tazobactam (Sod 3.375 gm/ Sodium Chloride) 100 mls @ 100 mls/ hr IVPB Q6 [facility] Last Admin: 08/10/17 03:11 Dose: 100 mls/hr Metronidazole (Flagyl 500mg/100ml Ns) 100 mls @ 100 mls/hr IVPB Q8 [facility] Stop: 08/10/17 09:59 Last Admin: 08/10/17 00:19 Dose: 100 mls/hr Lactulose (Enulose) 10 gm PO DAILY PRN PRN Reason: Constipation Metoclopramide HCl (Reglan) 10 mg IVP Q6 PRN PRN Reason: Nausea/Vomiting Valsartan (Diovan) 320 mg PO DAILY [facility] Last Admin: 08/09/17 08:21 Dose: 320 mg Ziprasidone (Geodon Cap) 20 mg PO DAILY [facility] Last Admin: 08/09/17 08:25 Dose: 20 mg Ziprasidone (Geodon) 160 mg PO HS [facility] Last Admin: 08/09/17 21:04 Dose: 160 mg - Labs Labs: 08/10/17 04:15 08/10/17 04:15 PT 13.6 Seconds (9.8-13.1) H 08/04/17 11:00 INR 1.3 (0.9-1.2) H 08/04/17 11:00 APTT 32.9 Seconds (25.6-37.1) 08/04/17 11:00 - Constitutional Appears: Well, Non-toxic, No Acute Distress - Head Exam Head Exam: ATRAUMATIC, NORMOCEPHALIC - Eye Exam Eye Exam: Normal appearance. absent: Conjunctival injection, Scleral icterus - ENT Exam ENT Exam: Mucous Membranes Moist, Normal Oropharynx - Respiratory Exam Respiratory Exam: NORMAL BREATHING PATTERN. absent: Accessory Muscle Use, Respiratory Distress - GI/Abdominal Exam GI & Abdominal Exam: Soft. absent: Distended, Tenderness Additional comments: bella drain in the RLQ with minimal serous output. Incisions well approximated with steristrips - Extremities Exam Extremities Exam: absent: Calf Tenderness, Pedal Edema, Tenderness - Neurological Exam Neurological Exam: Alert, Awake, Oriented x3 - Psychiatric Exam Psychiatric exam: Normal Affect, Normal Mood - Skin Skin Exam: Dry, Normal Color, Warm Assessment and Plan - Assessment and Plan (Free Text) Assessment: 52M s/p laparoscopic cholecystectomy, lysis of adhesion POD#6, with persistent leukocytosis Plan: - WBC 16.6 down from 16.8--continue IV abx per ID recs - continue regular diet - Continue to trend WBC - monitor drain output--will continue as outpatient - further recs per Dr. Cali Stallings, PGY2
--- NOTE | 2017-08-10 13:30 | PN ---
DATE: 08/10/2017 SUBJECTIVE: The patient was seen and examined. Interim events noted. Consults noted and appreciated. Case discussed with certified surgical first assistant. The patient . No chest pain. No shortness of breath. The abdominal pain is improved. The patient is tolerating diet and passing gas and bowel movements. PHYSICAL EXAMINATION GENERAL: The patient is in no acute distress. VITAL SIGNS: Stable. HEART: S1 and S2, normal and regular. LUNGS: Good bilateral air exchange. ABDOMEN: Soft, nontender. No organomegaly. No fluid. Bowel sounds appear to be plus. No sign of acute abdomen. No guarding. No rigidity. No rebound. EXTREMITIES: No edema. No calf swelling. No tenderness. No acute ischemia. CENTRAL NERVOUS SYSTEM: Essentially unchanged. DIAGNOSTIC DATA: Available diagnostic data reviewed. WBC count still remains high at . Case discussed with certified surgical first assistant. ASSESSMENT AND PLAN: Overall, the patient is medically stable, but the white count is still remains elevated. No pus discharge from REINA drainage. The patient is medically stable. Plan as ordered. North Nicholson MD
--- NOTE | 2017-08-10 14:11 | CT ---
PROCEDURE: CT Chest, Abdomen and Pelvis without intravenous contrast HISTORY: s/p lap clarita; leukocytosis COMPARISON: 11/28/2012 CT thorax TECHNIQUE: Radiation dose: Total exam DLP = in bowel mGy-cm. This CT exam was performed using one or more of the following dose reduction techniques: Automated exposure control, adjustment of the mA and/or kV according to patient size, and/or use of iterative reconstruction technique. FINDINGS: CT CHEST WITHOUT CONTRAST: LUNGS: Multifocal airspace disease, mild in severity. This includes the right upper lobe and right lower lobe. Similar less pronounced changes identified left upper lobe and left lower lobe she. These findings were apparent on the prior CT scan of the thorax MEDIASTINUM: Unremarkable. Normal caliber aorta and pulmonary arterial trunk. Normal size heart.Incidental finding(s): Small lymph nodes in the mediastinum similar to those seen previously LYMPH NODES: Unremarkable. PLEURA: Unremarkable. No pneumothorax. No pleural fluid. BONES: Unremarkable. OTHER FINDINGS: None. CT ABDOMEN AND PELVIS: LIVER: Unremarkable. No gross lesion or ductal dilatation. GALLBLADDER AND BILE DUCTS: Status post cholecystectomy. Focal fluid collection gallbladder fossa 3.1 x 4.5 cm. This is adjacent to a surgical drain. PANCREAS: Unremarkable. No gross lesion or ductal dilatation. SPLEEN: Unremarkable. ADRENALS: Unremarkable. No mass. KIDNEYS AND URETERS: Unremarkable. No hydronephrosis. No solid mass. VASCULATURE: Unremarkable. No aortic aneurysm. BOWEL: Diverticulosis without an acute inflammatory component or other associated pathologic process. APPENDIX: Normal appendix. PERITONEUM: No additional fluid collections identified in the abdomen, retroperitoneum or pelvis. LYMPH NODES: Unremarkable. No enlarged lymph nodes. BLADDER: Unremarkable. REPRODUCTIVE: Unremarkable. BONES: No acute fracture. OTHER FINDINGS: None. IMPRESSION: 1. Chronic and unchanged multifocal infiltrates both lungs right greater than left likely infectious/ inflammatory. 2. Fluid collection in the gallbladder fossa consistent with recent cholecystectomy. No additional fluid collections in the abdomen or pelvis. If bile leak is suspected postoperative radionuclide hepatobiliary scan recommended.
--- NOTE | 2017-08-10 18:54 | CP.PCM.PN ---
Subjective - Date & Time of Evaluation Date of Evaluation: 08/10/17 Time of Evaluation: 18:54 - Subjective Subjective: ID Note- Pt. seen and examined today. He denies any fever or chills. denies any cough. states sat in chair today. denies any diarrhea. Objective - Vital Signs/Intake and Output Vital Signs (last 24 hours): Temp Pulse Resp BP Pulse Ox 98 F 71 20 128/80 99 08/10/17 15:48 08/10/17 15:48 08/10/17 15:48 08/10/17 15:48 08/10/17 15:48 Intake and Output: 08/10/17 08/10/17 06:59 18:59 Output Total 10 Balance -10 - Medications Medications: Current Medications Acetaminophen (Tylenol 325mg Tab) 650 mg PO Q6 PRN PRN Reason: Fever >100.4 F Amlodipine Besylate (Norvasc) 10 mg PO DAILY [facility] Last Admin: 08/10/17 09:01 Dose: 10 mg Citalopram Hydrobromide (Celexa) 20 mg PO DAILY [facility] Last Admin: 08/10/17 09:01 Dose: 20 mg Docusate Sodium (Colace) 100 mg PO DAILY PRN PRN Reason: constipation Famotidine (Pepcid) 20 mg PO BID [facility] Last Admin: 08/10/17 16:51 Dose: 20 mg Hydrochlorothiazide (Hydrodiuril) 25 mg PO DAILY [facility] Last Admin: 08/10/17 12:13 Dose: 25 mg Piperacillin Sod/Tazobactam (Sod 3.375 gm/ Sodium Chloride) 100 mls @ 100 mls/ hr IVPB Q6 [facility] Last Admin: 08/10/17 15:33 Dose: 100 mls/hr Vancomycin HCl 750 mg/ Sodium (Chloride) 250 mls @ 166.667 mls/hr IVPB Q12 [facility] Lactulose (Enulose) 10 gm PO DAILY PRN PRN Reason: Constipation Metoclopramide HCl (Reglan) 10 mg IVP Q6 PRN PRN Reason: Nausea/Vomiting Valsartan (Diovan) 320 mg PO DAILY [facility] Last Admin: 08/10/17 12:13 Dose: 320 mg Ziprasidone (Geodon Cap) 20 mg PO DAILY [facility] Last Admin: 08/10/17 09:02 Dose: 20 mg Ziprasidone (Geodon) 160 mg PO HS [facility] Last Admin: 08/09/17 21:04 Dose: 160 mg - Labs Labs: - Constitutional Appears: No Acute Distress - Head Exam Head Exam: ATRAUMATIC - Eye Exam Eye Exam: EOMI - ENT Exam ENT Exam: Normal Oropharynx - Neck Exam Neck Exam: Full ROM - Respiratory Exam Respiratory Exam: NORMAL BREATHING PATTERN Additional comments: slightly decreased breath sounds at bases - Cardiovascular Exam Cardiovascular Exam: RRR, +S1, +S2 - GI/Abdominal Exam GI & Abdominal Exam: Soft, Normal Bowel Sounds Additional comments: No tenderness drain in place with sanguinous discharge - Extremities Exam Extremities Exam: Normal Inspection - Neurological Exam Neurological Exam: Alert, Awake, Oriented x3 - Additional Findings Additional findings: Laboratory Results - last 72 hr 08/08/17 08/09/17 08/09/17 06:00 05:06 05:30 WBC 17.5 H 16.8 H RBC 4.23 L 4.14 L Hgb 13.1 12.4 Hct 38.4 37.7 MCV 90.7 90.9 MCH 31.1 H 29.8 MCHC 34.3 32.8 L RDW 13.4 13.3 Plt Count 324 313 Sodium Potassium Chloride Carbon Dioxide Anion Gap BUN Creatinine Est GFR ( Amer) Est GFR (Non-Af Amer) POC Glucose (mg/dL) 93 Random Glucose Calcium Total Bilirubin AST ALT Alkaline Phosphatase Total Protein Albumin Globulin Albumin/Globulin Ratio 08/09/17 08/09/17 08/09/17 05:30 10:55 16:29 WBC RBC Hgb Hct MCV MCH MCHC RDW Plt Count Sodium 143 Potassium 4.0 Chloride 104 Carbon Dioxide 22 Anion Gap 21 H BUN 18 Creatinine 1.3 Est GFR ( Amer) > 60 Est GFR (Non-Af Amer) 58 POC Glucose (mg/dL) 196 H 80 Random Glucose 94 Calcium 9.3 Total Bilirubin 0.6 AST 39 ALT 46 Alkaline Phosphatase 83 Total Protein 7.6 Albumin 3.7 Globulin 4.0 H Albumin/Globulin Ratio 0.9 L 08/10/17 08/10/17 08/10/17 04:15 04:15 05:39 WBC 16.6 H RBC 3.90 L Hgb 11.6 L Hct 35.4 MCV 90.9 MCH 29.9 MCHC 32.9 L RDW 13.1 Plt Count 313 Sodium 141 Potassium 4.3 Chloride 106 Carbon Dioxide 22 Anion Gap 17 BUN 23 H Creatinine 1.4 Est GFR ( Amer) > 60 Est GFR (Non-Af Amer) 53 POC Glucose (mg/dL) 86 Random Glucose 96 Calcium 9.2 Total Bilirubin 0.4 AST 25 ALT 38 Alkaline Phosphatase 71 Total Protein 7.4 Albumin 3.5 Globulin 3.9 Albumin/Globulin Ratio 0.9 L 08/10/17 11:41 WBC RBC Hgb Hct MCV MCH MCHC RDW Plt Count Sodium Potassium Chloride Carbon Dioxide Anion Gap BUN Creatinine Est GFR ( Amer) Est GFR (Non-Af Amer) POC Glucose (mg/dL) 135 H Random Glucose Calcium Total Bilirubin AST ALT Alkaline Phosphatase Total Protein Albumin Globulin Albumin/Globulin Ratio Microbiology 08/03/17 08:45 Blood-Venous Blood Culture - Final NO GROWTH AFTER 5 DAYS 08/03/17 08:45 Blood-Venous Gram Stain - Final TEST NOT PERFORMED 08/03/17 08:30 Blood-Venous Blood Culture - Final NO GROWTH AFTER 5 DAYS 08/03/17 08:30 Blood-Venous Gram Stain - Final TEST NOT PERFORMED 08/03/17 11:44 Urine Urine Culture - Final No Growth (<1,000 CFU/ML) Accession No. : [id number] Patient Name / ID : DAFNE DOMINGUEZ / [id number] Exam Date : 08/10/2017 12:36:15 ( Approved ) Study Comment : Sex / Age : M / 52Y Creator : Lalit Holley MD Dictator : Lalit Holley MD Component Assembler Supervisor : Construction Superintendent : Lalit Holley MD Approver2 : Report Date : 08/10/2017 14:05:29 My Comment : PROCEDURE: CT Chest, Abdomen and Pelvis without intravenous contrast HISTORY: s/p lap clarita; leukocytosis COMPARISON: 11/28/2012 CT thorax TECHNIQUE: Radiation dose: Total exam DLP = in bowel mGy-cm. This CT exam was performed using one or more of the following dose reduction techniques: Automated exposure control, adjustment of the mA and/or kV according to patient size, and/or use of iterative reconstruction technique. FINDINGS: CT CHEST WITHOUT CONTRAST: LUNGS: Multifocal airspace disease, mild in severity. This includes the right upper lobe and right lower lobe. Similar less pronounced changes identified left upper lobe and left lower lobe she. These findings were apparent on the prior CT scan of the thorax MEDIASTINUM: Unremarkable. Normal caliber aorta and pulmonary arterial trunk. Normal size heart.Incidental finding(s): Small lymph nodes in the mediastinum similar to those seen previously LYMPH NODES: Unremarkable. PLEURA: Unremarkable. No pneumothorax. No pleural fluid. BONES: Unremarkable. OTHER FINDINGS: None. CT ABDOMEN AND PELVIS: LIVER: Unremarkable. No gross lesion or ductal dilatation. GALLBLADDER AND BILE DUCTS: Status post cholecystectomy. Focal fluid collection gallbladder fossa 3.1 x 4.5 cm. This is adjacent to a surgical drain. PANCREAS: Unremarkable. No gross lesion or ductal dilatation. SPLEEN: Unremarkable. ADRENALS: Unremarkable. No mass. KIDNEYS AND URETERS: Unremarkable. No hydronephrosis. No solid mass. VASCULATURE: Unremarkable. No aortic aneurysm. BOWEL: Diverticulosis without an acute inflammatory component or other associated pathologic process. APPENDIX: Normal appendix. PERITONEUM: No additional fluid collections identified in the abdomen, retroperitoneum or pelvis. LYMPH NODES: Unremarkable. No enlarged lymph nodes. BLADDER: Unremarkable. REPRODUCTIVE: Unremarkable. BONES: No acute fracture. OTHER FINDINGS: None. IMPRESSION: 1. Chronic and unchanged multifocal infiltrates both lungs right greater than left likely infectious/ inflammatory. 2. Fluid collection in the gallbladder fossa consistent with recent cholecystectomy. No additional fluid collections in the abdomen or pelvis. If bile leak is suspected postoperative radionuclide hepatobiliary scan recommended. Assessment and Plan (1) Acute cholecystitis Status: Acute (2) Biliary colic Status: Acute (3) Leukocytosis Status: Acute - Assessment and Plan (Free Text) Assessment: A/P- 52 year old male with DM II, was admitted with RUQ pain and nausea found to have acute cholecystitis s/p cholecystectomy and is clinically doing better. pt. has remained afebrile leukocytosis trending down but slowly present but no left shift and could be inflamamtory/reactive in nature. blood cx- neg x 2 UA - neg pelvic/abd/chest ct report- no fluid collection in abdomen but multifocal lung infiltrtaes ( chronic as per reoprt) as per report. plan- would advise to continue with IV zosyn. In light of the lung infiltrates advise to add IV vancomycin to cover for HAP gram pos pathogens. also pt. to use incentive spirometry . monitor wbc in am. All above d/w surgical dressing maker at length.
[2017-08-11] MEDS: Piperacillin/Tazobact 3.375 GM in Sodium Chloride 0.9% 100 ML IVPB SCH ×4 (03:52→22:37)
[2017-08-11 05:33] LABS: HEMATOCRIT 35.7 % (35.0-51.0); MEAN CELL VOLUME 90.9 fl (80.0-94.0); MEAN CORPUSCULAR HEMOGLOBIN 29.8 pg (27.0-31.0); MEAN CORPUSCULAR HGB CONC 32.8 g/dL (33.0-37.0); RED CELL DISTRIBUTION WIDTH 13.1 % (11.5-14.5); WHITE BLOOD COUNT 15.9 K/uL (4.8-10.8)
[2017-08-11 05:39] LABS: ALKALINE PHOSPHATASE 64 U/L (38-126); ALT/SGPT 33 U/L (21-72); AST/SGOT 28 U/L (17-59); BILIRUBIN,TOTAL 0.3 mg/dl (0.2-1.3); BLOOD UREA NITROGEN 21 mg/dl (9-20); CALCIUM 9.2 mg/dL (8.4-10.2); CARBON DIOXIDE 22 mmol/L (22-30); CHLORIDE 106 mmol/L (98-107); GFR AFRICAN-AMERICAN > 60; GLUCOSE,RANDOM 96 mg/dL (75-110); POTASSIUM 4.2 MMOL/L (3.6-5.0); SODIUM 142 mmol/l (132-148); TOTAL PROTEIN 7.4 G/DL (6.3-8.2)
[2017-08-11] MEDS ORDERED: Sodium Chloride 3% for Inhalation 4 ML VIAL.NEB IH PRN (09:48)
--- NOTE | 2017-08-11 12:19 | PN ---
DATE: 08/11/2017 SUBJECTIVE: The patient is seen and examined. Interim events noted. Consults noted and appreciated. Infectious Disease and Surgical followup and interventions noted and appreciated. The patient remains in progressive care unit on telemetry monitoring. The patient feels okay. Denies any abdominal pain, chest pain, shortness of breath or coughing. PHYSICAL EXAMINATION GENERAL: The patient is in no acute distress. VITAL SIGNS: Stable. HEART: S1 and S2, normal and regular. LUNGS: Good bilateral air exchange. ABDOMEN: Soft, nontender. REINA tube is in good position and functioning. The patient is without signs of distress. EXTREMITIES: No edema. No calf swelling. No tenderness. No acute ischemia. CENTRAL NERVOUS SYSTEM: Essentially unchanged. DIAGNOSTIC DATA: Available diagnostic data reviewed. CAT scan of chest shows multifocal pneumonia with no abscess in the abdomen. ASSESSMENT AND PLAN: Overall, the patient is medically stable. He has the findings of pneumonia on chest CAT scan. The patient is started on vancomycin and Zosyn. Plan as ordered. Case and plan discussed with the patient and the patient's at bedside at length. North Nicholson MD
[2017-08-12] MEDS: Piperacillin/Tazobact 3.375 GM in Sodium Chloride 0.9% 100 ML IVPB SCH ×2 (04:27→11:00)
[2017-08-12 05:45] LABS: HEMATOCRIT 38.2 % (35.0-51.0); MEAN CELL VOLUME 90.9 fl (80.0-94.0); MEAN CORPUSCULAR HEMOGLOBIN 29.9 pg (27.0-31.0); MEAN CORPUSCULAR HGB CONC 32.9 g/dL (33.0-37.0); RED CELL DISTRIBUTION WIDTH 13.2 % (11.5-14.5); WHITE BLOOD COUNT 15.2 K/uL (4.8-10.8)
[2017-08-12 08:37] VITALS: RESP 20; O2SAT 99
[2017-08-12 12:20] VITALS: BP 126/80; PULSE 75; TEMP 98
--- NOTE | 2017-08-12 13:34 | PN ---
DATE: 08/12/2017 SUBJECTIVE: The patient is seen and examined. Interim events noted. The patient remains in progressive care unit on telemetry monitoring. The patient feels okay, denies any chest pain, shortness of breath or coughing. PHYSICAL EXAMINATION: GENERAL: The patient is in no acute distress. VITAL SIGNS: Stable. HEART: S1 and S2, normal and regular. LUNGS: Good bilateral air exchange. ABDOMEN: Soft, nontender. EXTREMITIES: No edema, no calf swelling, no tenderness, no acute ischemia. CENTRAL NERVOUS SYSTEM: Essentially unchanged. DIAGNOSTIC DATA: Available diagnostic data reviewed. ASSESSMENT AND PLAN: Overall, the patient's general medical condition is stable. He remains on IV antibiotics for pneumonia and acute cholecystitis. Plan as ordered. Case and plan discussed with the patient. North Nicholson MD
--- NOTE | 2017-08-12 14:19 | CP.PCM.PN ---
Subjective - Date & Time of Evaluation Date of Evaluation: 08/12/17 Time of Evaluation: 13:20 - Subjective Subjective: ID Note- pt. seen and examined today. he is in good spirits. eating his lunch with his at his bedside. denies any complaints. Pt. states he is happy b/c he is being d/c home today. Pt. explains he was told by surgical team he will have drain in place for another 1-2 weeks. Objective - Vital Signs/Intake and Output Vital Signs (last 24 hours): Temp Pulse Resp BP Pulse Ox 98 F 75 20 126/80 99 08/12/17 12:00 08/12/17 12:00 08/12/17 12:00 08/12/17 12:00 08/12/17 12:00 Intake and Output: 08/12/17 08/12/17 06:59 18:59 Intake Total 750 Output Total 5 Balance 745 - Medications Medications: Current Medications Acetaminophen (Tylenol 325mg Tab) 650 mg PO Q6 PRN PRN Reason: Fever >100.4 F Amlodipine Besylate (Norvasc) 10 mg PO DAILY [facility] Last Admin: 08/12/17 08:34 Dose: 10 mg Citalopram Hydrobromide (Celexa) 20 mg PO DAILY [facility] Last Admin: 08/12/17 08:33 Dose: 20 mg Docusate Sodium (Colace) 100 mg PO DAILY PRN PRN Reason: constipation Famotidine (Pepcid) 20 mg PO BID [facility] Last Admin: 08/12/17 08:34 Dose: 20 mg Hydrochlorothiazide (Hydrodiuril) 25 mg PO DAILY [facility] Last Admin: 08/12/17 08:34 Dose: 25 mg Piperacillin Sod/Tazobactam (Sod 3.375 gm/ Sodium Chloride) 100 mls @ 100 mls/ hr IVPB Q6 [facility] Last Admin: 08/12/17 11:00 Dose: 100 mls/hr Vancomycin HCl 750 mg/ Sodium (Chloride) 250 mls @ 166.667 mls/hr IVPB Q12 [facility] Last Admin: 08/12/17 08:33 Dose: 166.667 mls/hr Lactulose (Enulose) 10 gm PO DAILY PRN PRN Reason: Constipation Metoclopramide HCl (Reglan) 10 mg IVP Q6 PRN PRN Reason: Nausea/Vomiting Valsartan (Diovan) 320 mg PO DAILY [facility] Last Admin: 08/12/17 08:34 Dose: 320 mg Ziprasidone (Geodon Cap) 20 mg PO DAILY [facility] Last Admin: 08/12/17 08:34 Dose: 20 mg Ziprasidone (Geodon) 160 mg PO HS [facility] Last Admin: 08/11/17 21:12 Dose: 160 mg - Labs Labs: 08/12/17 04:45 08/11/17 04:30 PT 13.6 Seconds (9.8-13.1) H 08/04/17 11:00 INR 1.3 (0.9-1.2) H 08/04/17 11:00 APTT 32.9 Seconds (25.6-37.1) 08/04/17 11:00 - Additional Findings Additional findings: - Head Exam Head Exam: ATRAUMATIC - Eye Exam Eye Exam: EOMI - ENT Exam ENT Exam: Normal Oropharynx - Neck Exam Neck Exam: Full ROM - Respiratory Exam Respiratory Exam: NORMAL BREATHING PATTERN Additional comments: slightly decreased breath sounds at bases - Cardiovascular Exam Cardiovascular Exam: RRR, +S1, +S2 - GI/Abdominal Exam GI & Abdominal Exam: Soft, Normal Bowel Sounds Additional comments: No tenderness drain in place with scant sanguinous discharge - Extremities Exam Extremities Exam: Normal Inspection - Neurological Exam Neurological Exam: Alert, Awake, Oriented x3 Laboratory Results - last 72 hr 08/11/17 08/11/17 08/12/17 04:30 04:30 04:45 WBC 15.9 H 15.2 H RBC 3.93 L 4.21 L Hgb 11.7 L 12.6 Hct 35.7 38.2 MCV 90.9 90.9 MCH 29.8 29.9 MCHC 32.8 L 32.9 L RDW 13.1 13.2 Plt Count 339 318 Sodium 142 Potassium 4.2 Chloride 106 Carbon Dioxide 22 Anion Gap 17 BUN 21 H Creatinine 1.4 Est GFR ( Amer) > 60 Est GFR (Non-Af Amer) 53 Random Glucose 96 Calcium 9.2 Total Bilirubin 0.3 AST 28 ALT 33 Alkaline Phosphatase 64 Total Protein 7.4 Albumin 3.6 Globulin 3.8 Albumin/Globulin Ratio 1.0 Microbiology 08/11/17 06:57 Sputum Gram Stain - Final 08/03/17 08:45 Blood-Venous Blood Culture - Final NO GROWTH AFTER 5 DAYS 08/03/17 08:45 Blood-Venous Gram Stain - Final TEST NOT PERFORMED 08/03/17 08:30 Blood-Venous Blood Culture - Final NO GROWTH AFTER 5 DAYS 08/03/17 08:30 Blood-Venous Gram Stain - Final TEST NOT PERFORMED 08/03/17 11:44 Urine Urine Culture - Final No Growth (<1,000 CFU/ML) Assessment and Plan (1) Acute cholecystitis Status: Acute (2) Biliary colic Status: Acute (3) Leukocytosis Status: Acute - Assessment and Plan (Free Text) Assessment: A/P- 52 year old male with DM II, was admitted with RUQ pain and nausea found to have acute cholecystitis s/p cholecystectomy and is clinically doing better. clinically much improved. pt. has remained afebrile for many days. leukocytosis trending down but slowly present but no left shift and could be inflamamtory/reactive in nature. blood cx- neg x 2 UA - neg pelvic/abd/chest ct report- no fluid collection in abdomen but multifocal lung infiltrtaes ( chronic as per reoprt) as per report. plan- pt. completed 3 days of IV vancomycin and 10 days of IV zosyn and 2 days of IV flagyl. Id patient is being d/c home today, advise to be d/c on levaquin 750 mg daily for 7 days along with clindamycin 600 mg q8 hours for 7 days. Patient to have close f/u with his PCP and with the surgeon and to have f/u cbc done in few days by his doctor as outpatient. Patient verbalizes full understadning of all above. All above d/w Unit MACHINE ROUGH ROUNDER Jonatan Salazar.
--- NOTE | 2017-08-12 14:23 | CP.PCM.PCO ---
Assessment & Plan - Assessment and Plan (Free Text) Assessment: 52 yr old M w/ cholecystitis, s/p Lap clarita, HAP patient feels well today; ambulating in hallway; denies fever, chills, n/v/d REINA with scant output pt. cleared for discharge to home today by , and as per , d/c on Levaquin 750 mg po daily x 7 days, clindamycin 300 mg po q8 x 1 week Electronic Rx sent to [facility] as per patient request pt. will f/u with pmd outpatient in 1 week ( Md notified- pt. needs f/u chest xray outpatient) f/u with on Saturday 08/18 for follow up and Reina removal above d/w with
--- NOTE | 2017-08-12 17:41 | CP.PCM.DIS ---
<Kayleigh Adams - Last Filed: 08/12/17 17:44> Provider - Provider Date of Admission: 08/03/17 08:27 Attending physician: North Nicholson MD Primary care physician: Sanam Barth MD Time Spent in preparation of Discharge (in minutes): 30 Hospital Course - Lab Results Lab Results: Micro Results 08/11/17 06:57 Sputum Gram Stain - Final 08/03/17 08:45 Blood-Venous Blood Culture - Final NO GROWTH AFTER 5 DAYS 08/03/17 08:45 Blood-Venous Gram Stain - Final TEST NOT PERFORMED 08/03/17 08:30 Blood-Venous Blood Culture - Final NO GROWTH AFTER 5 DAYS 08/03/17 08:30 Blood-Venous Gram Stain - Final TEST NOT PERFORMED 08/03/17 11:44 Urine Urine Culture - Final No Growth (<1,000 CFU/ML) Most Recent Lab Values WBC 15.2 K/uL (4.8-10.8) H 08/12/17 04:45 RBC 4.21 Mil/uL (4.40-5.90) L 08/12/17 04:45 Hgb 12.6 g/dL (12.0-18.0) 08/12/17 04:45 Hct 38.2 % (35.0-51.0) 08/12/17 04:45 MCV 90.9 fl (80.0-94.0) 08/12/17 04:45 MCH 29.9 pg (27.0-31.0) 08/12/17 04:45 MCHC 32.9 g/dL (33.0-37.0) L 08/12/17 04:45 RDW 13.2 % (11.5-14.5) 08/12/17 04:45 Plt Count 318 K/uL (130-400) 08/12/17 04:45 MPV 9.0 fl (7.2-11.7) 08/06/17 05:40 Neut % (Auto) 67.8 % (50.0-75.0) 08/06/17 05:40 Lymph % (Auto) 15.7 % (20.0-40.0) L 08/06/17 05:40 [place] % (Auto) 13.0 % (0.0-10.0) H 08/06/17 05:40 Eos % (Auto) 3.0 % (0.0-4.0) 08/06/17 05:40 Baso % (Auto) 0.5 % (0.0-2.0) 08/06/17 05:40 Neut # 10.4 K/uL (1.8-7.0) H 08/06/17 05:40 Lymph # 2.4 K/uL (1.0-4.3) 08/06/17 05:40 [place] # 2.0 K/uL (0.0-0.8) H 08/06/17 05:40 Eos # 0.5 K/uL (0.0-0.7) 08/06/17 05:40 Baso # 0.1 K/uL (0.0-0.2) 08/06/17 05:40 PT 13.6 Seconds (9.8-13.1) H 08/04/17 11:00 INR 1.3 (0.9-1.2) H 08/04/17 11:00 APTT 32.9 Seconds (25.6-37.1) 08/04/17 11:00 pO2 48 mm/Hg (30-55) 08/03/17 08:45 VBG pH 7.37 (7.32-7.43) 08/03/17 08:45 VBG pCO2 46 mmHg (40-60) 08/03/17 08:45 VBG HCO3 25.1 mmol/L 08/03/17 08:45 VBG Total CO2 28.0 mmol/L (22-28) 08/03/17 08:45 VBG O2 Sat (Calc) 89.4 % (40-65) H 08/03/17 08:45 VBG Base Excess 0.8 mmol/L (0.0-2.0) 08/03/17 08:45 VBG Potassium 3.9 mmol/L (3.6-5.2) 08/03/17 08:45 Sodium 139.0 mmol/L (132-148) 08/03/17 08:45 Chloride 105.0 mmol/L (98-107) 08/03/17 08:45 Glucose 156 mg/dL (75-110) H 08/03/17 08:45 Lactate 2.4 mmol/L (0.7-2.1) H 08/03/17 08:45 FiO2 21.0 % 08/03/17 08:45 Crit Value Called To Eliza escobedo 08/03/17 08:45 Crit Value Called By Ms 08/03/17 08:45 Crit Value Read Back Y 08/03/17 08:45 Blood Gas Notified Time 850 08/03/17 08:45 Sodium 142 mmol/l (132-148) 08/11/17 04:30 Potassium 4.2 MMOL/L (3.6-5.0) 08/11/17 04:30 Chloride 106 mmol/L (98-107) 08/11/17 04:30 Carbon Dioxide 22 mmol/L (22-30) 08/11/17 04:30 Anion Gap 17 (10-20) 08/11/17 04:30 BUN 21 mg/dl (9-20) H 08/11/17 04:30 Creatinine 1.4 mg/dL (0.8-1.5) 08/11/17 04:30 Est GFR ( Amer) > 60 08/11/17 04:30 Est GFR (Non-Af Amer) 53 08/11/17 04:30 POC Glucose (mg/dL) 135 mg/dL (65-110) H 08/10/17 11:41 Random Glucose 96 mg/dL (75-110) 08/11/17 04:30 Calcium 9.2 mg/dL (8.4-10.2) 08/11/17 04:30 Total Bilirubin 0.3 mg/dl (0.2-1.3) 08/11/17 04:30 Direct Bilirubin 0.5 mg/ml (0.0-0.4) H 08/04/17 06:35 AST 28 U/L (17-59) 08/11/17 04:30 ALT 33 U/L (21-72) 08/11/17 04:30 Alkaline Phosphatase 64 U/L (38-126) 08/11/17 04:30 Total Protein 7.4 G/DL (6.3-8.2) 08/11/17 04:30 Albumin 3.6 g/dL (3.5-5.0) 08/11/17 04:30 Globulin 3.8 gm/dL (2.2-3.9) 08/11/17 04:30 Albumin/Globulin Ratio 1.0 (1.0-2.1) 08/11/17 04:30 Lipase 142 U/L (23-300) 08/03/17 05:47 Venous Blood Potassium 3.9 mmol/L (3.6-5.2) 08/03/17 08:45 Urine Color Yellow (YELLOW) 08/03/17 11:44 Urine Clarity Cloudy (Clear) 08/03/17 11:44 Urine pH 6.0 (5.0-8.0) 08/03/17 11:44 Ur Specific [place] 1.030 (1.003-1.030) 08/03/17 11:44 Urine Protein 100 mg/dL (NEGATIVE) 08/03/17 11:44 Urine Glucose (UA) Neg mg/dL (Normal) 08/03/17 11:44 Urine Ketones Negative mg/dL (NEGATIVE) 08/03/17 11:44 Urine Blood Negative (NEGATIVE) 08/03/17 11:44 Urine Nitrate Negative (NEGATIVE) 08/03/17 11:44 Urine Bilirubin Negative (NEGATIVE) 08/03/17 11:44 Urine Urobilinogen 0.2-1.0 mg/dL (0.2-1.0) 08/03/17 11:44 Ur Leukocyte Esterase Neg Susana/uL (Negative) 08/03/17 11:44 Urine RBC (Auto) 10 /hpf (0-3) H 08/03/17 11:44 Urine Microscopic WBC 4 /hpf (0-5) 08/03/17 11:44 - Hospital Course Hospital Course: - 52 YO M w. cholecystitis s/p Lap clarita, is doing well, ambulating, denies chest pain, fever, chills, nausea, vomiting - GEOFFREY w/ scant output -F/U with PMD in 1 week - F/U with Dr. Velazquez for geoffrey removal on 08/18/17 Discharge Exam - Head Exam Head Exam: ATRAUMATIC - Eye Exam Eye Exam: Normal appearance - Respiratory Exam Respiratory Exam: Clear to PA & Lateral, NORMAL BREATHING PATTERN - Cardiovascular Exam Cardiovascular Exam: +S1, +S2 - GI/Abdominal Exam GI & Abdominal Exam: Normal Bowel Sounds, Soft Additional comments: bella drain in the RLQ w/ minimal output - Neurological Exam Neurological exam: Alert, CN II-XII Intact, Normal Gait, Oriented x3 Discharge Plan - Discharge Medications Prescriptions: Clindamycin [Cleocin] 300 mg PO Q8 #15 cap Famotidine [Pepcid] 20 mg PO BID #60 tab Levofloxacin [Levaquin] 750 mg PO DAILY #7 tablet - Follow Up Plan Condition: STABLE Disposition: HOME/ ROUTINE Instructions: Cholecystitis (DC), Cholecystitis (GEN), Leukocytosis (DC), Leukocytosis (GEN) Additional Instructions: patient feels well today; ambulating in hallway; denies fever, chills, n/v/d GEOFFREY with scant output pt. cleared for discharge to home today by , and as per , d/c on Levaquin 750 mg po daily x 7 days, clindamycin 300 mg po q8 x 1 week Electronic Rx sent to [facility] as per patient request pt. will f/u with pmd outpatient in 1 week ( Md notified- pt. needs f/u chest xray outpatient) f/u with on Saturday 08/18 for follow up and Geoffrey removal above d/w with Referrals: Sanam Barth MD [Primary Care Provider] - Richard Leiva MD [Staff Provider] - <North Nicholson - Last Filed: 08/13/17 16:43> Provider - Provider Date of Admission: 08/03/17 08:27 Attending physician: North Nicholson MD Primary care physician: Sanam Barth MD Hospital Course - Lab Results Lab Results: Micro Results 08/11/17 06:57 Sputum Gram Stain - Final 08/03/17 08:45 Blood-Venous Blood Culture - Final NO GROWTH AFTER 5 DAYS 08/03/17 08:45 Blood-Venous Gram Stain - Final TEST NOT PERFORMED 08/03/17 08:30 Blood-Venous Blood Culture - Final NO GROWTH AFTER 5 DAYS 08/03/17 08:30 Blood-Venous Gram Stain - Final TEST NOT PERFORMED 08/03/17 11:44 Urine Urine Culture - Final No Growth (<1,000 CFU/ML) Most Recent Lab Values WBC 15.2 K/uL (4.8-10.8) H 08/12/17 04:45 RBC 4.21 Mil/uL (4.40-5.90) L 08/12/17 04:45 Hgb 12.6 g/dL (12.0-18.0) 08/12/17 04:45 Hct 38.2 % (35.0-51.0) 08/12/17 04:45 MCV 90.9 fl (80.0-94.0) 08/12/17 04:45 MCH 29.9 pg (27.0-31.0) 08/12/17 04:45 MCHC 32.9 g/dL (33.0-37.0) L 08/12/17 04:45 RDW 13.2 % (11.5-14.5) 08/12/17 04:45 Plt Count 318 K/uL (130-400) 08/12/17 04:45 MPV 9.0 fl (7.2-11.7) 08/06/17 05:40 Neut % (Auto) 67.8 % (50.0-75.0) 08/06/17 05:40 Lymph % (Auto) 15.7 % (20.0-40.0) L 08/06/17 05:40 [place] % (Auto) 13.0 % (0.0-10.0) H 08/06/17 05:40 Eos % (Auto) 3.0 % (0.0-4.0) 08/06/17 05:40 Baso % (Auto) 0.5 % (0.0-2.0) 08/06/17 05:40 Neut # 10.4 K/uL (1.8-7.0) H 08/06/17 05:40 Lymph # 2.4 K/uL (1.0-4.3) 08/06/17 05:40 [place] # 2.0 K/uL (0.0-0.8) H 08/06/17 05:40 Eos # 0.5 K/uL (0.0-0.7) 08/06/17 05:40 Baso # 0.1 K/uL (0.0-0.2) 08/06/17 05:40 PT 13.6 Seconds (9.8-13.1) H 08/04/17 11:00 INR 1.3 (0.9-1.2) H 08/04/17 11:00 APTT 32.9 Seconds (25.6-37.1) 08/04/17 11:00 pO2 48 mm/Hg (30-55) 08/03/17 08:45 VBG pH 7.37 (7.32-7.43) 08/03/17 08:45 VBG pCO2 46 mmHg (40-60) 08/03/17 08:45 VBG HCO3 25.1 mmol/L 08/03/17 08:45 VBG Total CO2 28.0 mmol/L (22-28) 08/03/17 08:45 VBG O2 Sat (Calc) 89.4 % (40-65) H 08/03/17 08:45 VBG Base Excess 0.8 mmol/L (0.0-2.0) 08/03/17 08:45 VBG Potassium 3.9 mmol/L (3.6-5.2) 08/03/17 08:45 Sodium 139.0 mmol/L (132-148) 08/03/17 08:45 Chloride 105.0 mmol/L (98-107) 08/03/17 08:45 Glucose 156 mg/dL (75-110) H 08/03/17 08:45 Lactate 2.4 mmol/L (0.7-2.1) H 08/03/17 08:45 FiO2 21.0 % 08/03/17 08:45 Crit Value Called To Eliza escobedo 08/03/17 08:45 Crit Value Called By Ms 08/03/17 08:45 Crit Value Read Back Y 08/03/17 08:45 Blood Gas Notified Time 850 08/03/17 08:45 Sodium 142 mmol/l (132-148) 08/11/17 04:30 Potassium 4.2 MMOL/L (3.6-5.0) 08/11/17 04:30 Chloride 106 mmol/L (98-107) 08/11/17 04:30 Carbon Dioxide 22 mmol/L (22-30) 08/11/17 04:30 Anion Gap 17 (10-20) 08/11/17 04:30 BUN 21 mg/dl (9-20) H 08/11/17 04:30 Creatinine 1.4 mg/dL (0.8-1.5) 08/11/17 04:30 Est GFR ( Amer) > 60 08/11/17 04:30 Est GFR (Non-Af Amer) 53 08/11/17 04:30 POC Glucose (mg/dL) 135 mg/dL (65-110) H 08/10/17 11:41 Random Glucose 96 mg/dL (75-110) 08/11/17 04:30 Calcium 9.2 mg/dL (8.4-10.2) 08/11/17 04:30 Total Bilirubin 0.3 mg/dl (0.2-1.3) 08/11/17 04:30 Direct Bilirubin 0.5 mg/ml (0.0-0.4) H 08/04/17 06:35 AST 28 U/L (17-59) 08/11/17 04:30 ALT 33 U/L (21-72) 08/11/17 04:30 Alkaline Phosphatase 64 U/L (38-126) 08/11/17 04:30 Total Protein 7.4 G/DL (6.3-8.2) 08/11/17 04:30 Albumin 3.6 g/dL (3.5-5.0) 08/11/17 04:30 Globulin 3.8 gm/dL (2.2-3.9) 08/11/17 04:30 Albumin/Globulin Ratio 1.0 (1.0-2.1) 08/11/17 04:30 Lipase 142 U/L (23-300) 08/03/17 05:47 Venous Blood Potassium 3.9 mmol/L (3.6-5.2) 08/03/17 08:45 Urine Color Yellow (YELLOW) 08/03/17 11:44 Urine Clarity Cloudy (Clear) 08/03/17 11:44 Urine pH 6.0 (5.0-8.0) 08/03/17 11:44 Ur Specific [place] 1.030 (1.003-1.030) 08/03/17 11:44 Urine Protein 100 mg/dL (NEGATIVE) 08/03/17 11:44 Urine Glucose (UA) Neg mg/dL (Normal) 08/03/17 11:44 Urine Ketones Negative mg/dL (NEGATIVE) 08/03/17 11:44 Urine Blood Negative (NEGATIVE) 08/03/17 11:44 Urine Nitrate Negative (NEGATIVE) 08/03/17 11:44 Urine Bilirubin Negative (NEGATIVE) 08/03/17 11:44 Urine Urobilinogen 0.2-1.0 mg/dL (0.2-1.0) 08/03/17 11:44 Ur Leukocyte Esterase Neg Susana/uL (Negative) 08/03/17 11:44 Urine RBC (Auto) 10 /hpf (0-3) H 08/03/17 11:44 Urine Microscopic WBC 4 /hpf (0-5) 08/03/17 11:44
== END 2017-08-12 15:35 | disposition home or self-care (01) | DRG 417 ==
LOC: H.ER 05:01 → H.ERHOLD 08:27 → H.MEDSURG1 10:22 → H.TEL 08-04 22:31
PROVIDERS: ADMIT Internal Medicine; ATTEND Internal Medicine
PROC: 0DNU4ZZ Release Omentum, Percutaneous Endoscopic Approach (ICD-10-PCS; 2017-08-04)
PROC: 0FT44ZZ Resection of Gallbladder, Percutaneous Endoscopic Approach (ICD-10-PCS; principal; 2017-08-04 16:30)
DX: K80.00 Calculus of gallbladder with acute cholecystitis without obstruction (principal); J18.9 Pneumonia, unspecified organism; I95.9 Hypotension, unspecified; K66.0 Peritoneal adhesions (postprocedural) (postinfection); I10 Essential (primary) hypertension; E11.9 Type 2 diabetes mellitus without complications; F32.9 Major depressive disorder, single episode, unspecified; Y95 Nosocomial condition; F17.210 Nicotine dependence, cigarettes, uncomplicated

== ENCOUNTER 2018-10-01 10:55 | Emergency (ER) | payer MEDICARE, MEDICAID ==
[2018-10-01 10:58] VITALS: BMI 41.2
[2018-10-01 10:59] VITALS: BP 151/97; PULSE 73; RESP 20; TEMP 98.2; O2SAT 95
--- NOTE | 2018-10-01 11:31 | ED PDOC ---
HPI: General Adult Time Seen by Provider: 10/01/18 11:09 Chief Complaint (Nursing): Anxiety Chief Complaint (Provider): Anxiety History Per: Patient History/Exam Limitations: no limitations Onset/Duration Of Symptoms: Days (1x) Current Symptoms Are (Timing): Still Present Additional Complaint(s): 53 year old male with past medical history of depression and HTN presents to the ED for an evaluation of anxiety. Patient reports he ran out of Geodon 80mg medication yesterday and he came to the ED for a prescription for refill because his doctor is currently on vacation. He feels anxious currently without taking Geodon. Denies fever, chills, numbness, tingling, shortness of breath, chest pain, abdominal pain, nausea, vomiting, diarrhea, headache, suicidal or homicida l ideation and no other complaints. PMD: Dr. Sandoval Past Medical History Reviewed: Historical Data, Nursing Documentation, Vital Signs Vital Signs: Last Vital Signs Temp 98.2 F 10/01/18 10:59 Pulse 73 10/01/18 10:59 Resp 20 10/01/18 10:59 BP 151/97 H 10/01/18 10:59 Pulse Ox 95 10/01/18 10:59 - Medical History PMH: Depression, HTN - Family History Family History: States: Unknown Family Hx - Social History Current smoker - smoking cessation education provided: Yes Alcohol: None Drugs: Denies - Immunization History Hx Tetanus Toxoid Vaccination: No Hx Influenza Vaccination: No Hx Pneumococcal Vaccination: No - Home Medications Home Medications: Ambulatory Orders Medication Instructions Recorded RX: Valsartan [Diovan] 320 mg PO DAILY 02/01/17 RX: Ziprasidone HCl 160 mg PO HS 02/01/17 RX: Zolpidem [Ambien] 10 mg PO HS 02/01/17 RX: Citalopram Hydrobromide 20 mg PO DAILY 08/03/17 [Celexa] RX: Ziprasidone HCl [Geodon] 20 mg PO DAILY 08/03/17 RX: amLODIPine [Norvasc] 10 mg PO DAILY 08/03/17 RX: hydroCHLOROthiazide 25 mg PO DAILY 08/03/17 [Hydrodiuril] Levofloxacin [Levaquin] 750 mg PO DAILY #7 tablet 08/12/17 RX: Clindamycin [Cleocin] 300 mg PO Q8 #15 cap 08/12/17 RX: Famotidine [Pepcid] 20 mg PO BID #60 tab 08/12/17 Ziprasidone HCl [Geodon] 80 mg PO DAILY 5 Days capsule 10/01/18 - Allergies Allergies/Adverse Reactions: Allergies Allergy/AdvReac Type Severity Reaction Status Date / Time No Known Allergies Allergy Verified 02/01/17 13:00 Review of Systems ROS Statement: Except As Marked, All Systems Reviewed And Found Negative Constitutional: Negative for: Fever, Chills Cardiovascular: Negative for: Chest Pain Respiratory: Negative for: Cough, Shortness of Breath Gastrointestinal: Negative for: Nausea, Vomiting, Abdominal Pain, Diarrhea Neurological: Negative for: Numbness, Headache, Other (tinigling) Psych: Positive for: Anxiety. Negative for: Suicidal ideation (homicidal id eation) Physical Exam - Reviewed Nursing Documentation Reviewed: Yes Vital Signs Reviewed: Yes - Physical Exam Appears: Positive for: Non-toxic, No Acute Distress Head Exam: Positive for: ATRAUMATIC, NORMAL INSPECTION, NORMOCEPHALIC Skin: Positive for: Normal Color, Warm, Dry. Negative for: Rash Eye Exam: Positive for: EOMI, Normal appearance, PERRL ENT: Positive for: Normal ENT Inspection Neck: Positive for: Normal, Painless ROM Cardiovascular/Chest: Positive for: Regular Rate, Rhythm. Negative for: Murmur Respiratory: Positive for: Normal Breath Sounds. Negative for: Decreased Breath Sounds, Wheezing, Respiratory Distress Gastrointestinal/Abdominal: Positive for: Normal Exam, Soft. Negative for: Tenderness, Guarding, Rebound Back: Positive for: Normal Inspection. Negative for: L CVA Tenderness, R CVA Tenderness Extremity: Positive for: Normal ROM. Negative for: Tenderness, Pedal Edema, Deformity Neurologic/Psych: Positive for: Alert, Oriented (x3). Negative for: Motor/Sen michael Deficits - ECG O2 Sat by Pulse Oximetry: 95 (RA) Pulse Ox Interpretation: Normal - Progress ED Course And Treament: 1200: Pt. history reviewed in records. On geodon. Pt. states he takes 80mg, so will tx accordingly. Medical Decision Making Medical Decision Making: Time: 1125 Initial Plan: EKG Reevaluation Upon provider reevaluation patient is feeling better, is medically stable, and requires no further treatment in the ED at this time. Patient will be discharged home with Thad for anxiety. Counseling was provided and all questions were answered regarding diagnosis and need for follow up with [facility]. There is agreement to discharge plan. Return if symptoms persist or worsen. ----- Scribe Attestation: Documented by Ania Rich, acting as a scribe for Pepito Bravo MD. Provider Scribe Attestation: All medical record entries made by the Scribe were at my direction and personally dictated by me. I have reviewed the chart and agree that the record accurately reflects my personal performance of the history, physical exam, medical decision making, and the department course for this patient. I have also personally directed, reviewed, and agree with the discharge instructions and disposition. Disposition - Clinical Impression Clinical Impression: Anxiety - Patient ED Disposition Is Patient to be Admitted: No - Disposition Referrals: [facility] [Outside] - 10/04/18 Disposition: Routine/Home Disposition Time: 12:20 Condition: STABLE Additional Instructions: Return if not better in 3 days. Prescriptions: Ziprasidone HCl [Geodon] 80 mg PO DAILY 5 Days capsule Instructions: Anxiety, Adult (DC) Forms: [employer] ([place])
--- NOTE | 2018-10-01 18:33 | CARD ---
APPROVED REPORT Date of service: 10/01/2018 EKG Measurement Heart [id number] <Conclusion> Normal sinus rhythm Normal ECG
== END 2018-10-01 11:45 | disposition home or self-care (01) ==
LOC: H.ER 10:55
DX: F41.9 Anxiety disorder, unspecified (principal)